=== PATIENT | male | born 1965 | race Caucasian/White ===

== ENCOUNTER → 2016-06-30 08:42 | Outpatient (CLI) | payer MEDICARE | END | disposition home or self-care (01) | LOC: D.RAD 06-23 13:00 | DX: M54.6 Pain in thoracic spine (principal) ==

== ENCOUNTER 2017-01-11 16:28 | Inpatient (IN) | payer MEDICARE ==
[~2017-01-11] VITALS: Ht 182.9 cm; Wt 152.7 kg
[2017-01-11 17:05] LABS: BASOPHILS 0.1 % (0-2); EOSINOPHILS 0 % (0-7); HEMATOCRIT 35.5 % (42.0-54.0); HEMOGLOBIN 11.1 g/dL (13.5-17.5); IMMATURE GRANULOCYTES 0.3 % (0-5); LYMPHOCYTES 11.5 % (15-50); MCH 24.6 pg (26.0-34.0); MCHC 31.3 g/dL (31.0-37.0); MCV 78.5 fL (80.0-100.0); MEAN PLATELET VOLUME 8.6 fL (7.4-10.4); MONOCYTES 15.8 % (2-11); NEUTROPHILS 72.3 % (40-80); PLATELET COUNT 304 10x3/uL (130-400); RBC 4.52 10x6/uL (4.20-6.10); RDW 14.4 % (11.5-14.5); WBC 13.7 10x3/uL (4.8-10.8)
[2017-01-11 17:18] LABS: ALBUMIN 2.7 g/dL (3.4-5.0); ALKALINE PHOSPHATASE 54 U/L (46-116); ALT (SGPT) 10 U/L (10-68); BILIRUBIN - TOTAL 0.45 mg/dL (0.2-1.3); CALC OSMOLALITY 268 mosm/kg (275-300); CALCIUM 8.7 mg/dL (8.5-10.1); CARBON DIOXIDE 23.5 mmol/L (21.0-32.0); CHLORIDE - SERUM 98 mmol/L (98-107); CREATININE - SERUM 0.8 mg/dL (0.6-1.3); POTASSIUM - SERUM 4.1 mmol/L (3.5-5.1); PROTEIN - SERUM 7.5 g/dL (6.4-8.2); SODIUM 134 mmol/L (136-145); UREA NITROGEN 9 mg/dL (7-18); eGFR NON AFRICAN AMERICAN > 90 mL/min (90-120)
[2017-01-11 17:20] LABS: GLUCOSE 129 mg/dL (74-106)
[2017-01-11 20:34] LABS: COLOR YELLOW (YELLOW)
[2017-01-11 20:35] LABS: APPEARANCE CLEAR (CLEAR); BILIRUBIN NEGATIVE (NEGATIVE); GLUCOSE 1000 mg/dL (NEGATIVE); KETONE MODERATE mg/dL (NEGATIVE); NITRITE NEGATIVE (NEGATIVE); PROTEIN NEGATIVE (NEGATIVE); SPECIFIC GRAVITY 1.015 (1.005-1.020); UROBILINOGEN NORMAL (NORMAL)
--- NOTE | 2017-01-11 21:30 | NUR ---
RECEIVED TO FLOOR FROM ER, ORIENTED TO ROOM, CALL LIGHT IN REACH, DENIES NEEDS, BED LOWEST POSITION, WILL CONTINUE TO MONITOR
[2017-01-11] MEDS ORDERED: FUROSEMIDE20 MG PO (21:36)
[2017-01-11] MEDS ORDERED: PRAVACHOL40 MG PO (21:36)
[2017-01-11] MEDS ORDERED: COREG25 MG PO (21:36)
[2017-01-11] MEDS ORDERED: PLAVIX75 MG PO (21:37)
[2017-01-11] MEDS ORDERED: KLOR-CON 1010 MEQ PO (21:37)
[2017-01-11] MEDS ORDERED: NOVOLOG MIX 70/10 ML SQ (21:38)
[2017-01-11] MEDS ORDERED: CELEXA40 MG PO (21:39)
[2017-01-11] MEDS ORDERED: METFORMIN HCL500 M1 PO (21:39)
[2017-01-11] MEDS ORDERED: LANTUS INSULIN10 ML SC (21:40)
[2017-01-11] MEDS ORDERED: FARXIGA10 MG PO (21:40)
[2017-01-11] MEDS ORDERED: HYDROCODONE-APA1 TAB PO (21:41)
[2017-01-11] MEDS ORDERED: NEURONTIN600 MG PO (21:41)
[2017-01-11] MEDS ORDERED: BAYER CHEWABLE81 MG PO (21:43)
[2017-01-11] MEDS ORDERED: NIASPAN1000 MG PO (21:44)
[2017-01-11] MEDS ORDERED: FLAXSEED OIL1000 MG PO (21:44)
[2017-01-12 00:27] VITALS: BP 129/51
[2017-01-12 04:59] VITALS: BP 132/74
[2017-01-12 06:19] VITALS: BMI 38.7
--- NOTE | 2017-01-12 06:34 | NUR ---
AWAKE ALERT REMAINS NPO ASSESSMENT PER ADMIT PACKET.
--- NOTE | 2017-01-12 07:33 | NUR ---
PT WAS RECEIVED THIS AM LYING IN BED. FAMILY AT BEDSIDE. PT HAS BEEN NPO WAITING ON SURGERY TO BE DONE TODAY BY DR JACOB. PT AND FAMILY WANTING TO KNOW TIME OF SURGERY. I CALLED SURGERY AND HE HAS NOT BEEN SCHEDULED YET. GEN- AWAKE AND ALERT. LUNGS- CLEAR. HEART- RRR. ABD- WITH TENDERNESS, BS+. EXT WITH NO EDEMA. BED IS LOW, SIDE RAILS UP X 2 AND CALL LIGHT IN REACH.
--- NOTE | 2017-01-12 07:36 | NUR ---
BS WAS 138. NO INSULIN GIVEN AT THIS TIME.
[2017-01-12 08:25] VITALS: BP 119/62
[2017-01-12 10:06] LABS: INR 1.21 (0.85-1.17); PROTIME 14.9 SECONDS (11.6-15.0)
--- NOTE | 2017-01-12 10:07 | NUR ---
Patient Name: MIGUEL ANGEL RODRIGUEZ Admission Status: ER Accout number: [id number] Admission Date: 01-11-2017 : 1965 Admission Diagnosis: Attending: REN JACOB Current LOS: 1 Anticipated DC Date: 01-18-2017 Planned Disposition: Home Primary Insurance: [employer] ADV Discharge Planning Comments: CM MET WITH PATIENT AND SISTER REGARDING D/C NEEDS AND PLANS. PATIENT STATED HE HAS A RAMP TO ENTER HOME AND NO STAIRS INSIDE. PATIENTS WILL DRIVE HIM HOME AT DISCHARGE. PATIENT STATED HE IS INDEPENDENT WITH HIS CARE AND HAS A WALKER, CANE, SHOWER CHAIR, AND GLUCOMETER AT HOME. PATIENTS PCP IS DR. REDDY AND PHARMACY IS [facility]. PATIENT STATED HE HAD HOME HEALTH FOR A WEEK AND WILL NOT HAVE IT AGAIN THAT THEY DID NOTHING FOR HIM. CM WILL CONTINUE TO FOLLOW PATIENT WITH D/C NEEDS AND PLANS. PCP DR. REDDY [facility] [phone] TAMARA () [phone] Studio Owner: Kenyatta Marvin Is the patient Alert and Oriented? Yes 0 * How many steps to enter\exit or inside your home? RAMP 0 * PCP DR. REDDY 0 * [facility] * Preadmission Environment Home with Family 0 * ADLs Independent 0 * Equipment Cane Glucometer Shower Chair Walker 0 * List name and contact numbers for known caregivers / representatives who currently or will assist patient after discharge: TAMARA () [phone] * Community resources currently utilized None 0 * Additional services required to return to the preadmission environment? Yes 0 * Can the patient safely return to the preadmission environment? Yes 0 * Has this patient been hospitalized within the prior 30 days at any hospital? Yes 0 Grand Total: 0
--- NOTE | 2017-01-12 11:17 | NUR ---
IR IS HERE TO GET PT TO HAVE CT GUIDED DRAINAGE DONE.
--- NOTE | 2017-01-12 12:33 | NUR ---
PT RETURNED FROM IR. TALKED TO MARSHA CASTILLO WITH IR AND HE STATES THERE WAS A LITTLE BLOOD DRAINED. STATES THAT IT IS A HEMATOMA. NO DRAIN OR FURTHER PROCEDURE BY IR. AWAIT DR JACOB TO SEE TO EVALUATE.
--- NOTE | 2017-01-12 13:59 | NUR ---
CALLED DR JACOB. HE OK'D PT HAVING AN ADA DIET. ORDERED PT SOME LUNCH.
[2017-01-12 16:00] VITALS: BP 135/70
--- NOTE | 2017-01-12 16:14 | NUR ---
BS WAS 275. GIVEN HUMULIN R 6 UNITS LEFT ARM. PT OFFERS NO COMPLAINTS. HE HAS BEEN RESTING IN BED.
--- NOTE | 2017-01-12 18:49 | NUR ---
PT FEELS LIKE HE IS RUNNING A FEVER. TEMP IS 102.3. CALLED DR RODNEY.
--- NOTE | 2017-01-12 19:15 | NUR ---
RECIEVED SHIFT REPORT. PT IS LYING IN BED. ALERT AND ORIENTED AND ABLE TO VERBALIZE NEEDS. IV IS PATENT AND FLUIDS ARE RUNNING PER ORDER. PT IS AMBULATORY BUT WAS INSTRUCTED TO CALL FOR ANY ASSISTANCE NEEDED. PT STATES PAIN IS 4/10. NO NEEDS ARE VERBALIZED AT THIS TIME. FAMILY AND VISITORS ARE AT THE BEDSIDE. WILL CONTINUE TO MONITOR. SIDE RAILS ARE UP X 2. BED IS IN LOWEST POSITION. CALL LIGHT IS WITHIN REACH.
--- NOTE | 2017-01-12 20:10 | NUR ---
CALL PLACED AND RETURNED BY DR RODNEY. LEGAL SPECIALIST DILAUDID WAS ORDERED FOR PT AND HE HAS AN ALLERGY TO MEDICATION. NEW ORDERS RECIEVED FOR MORPHINE LEGAL SPECIALIST WHICH IS WHAT PT HAS BEEN TAKING.
--- NOTE | 2017-01-12 20:34 | NUR ---
SHIFT ASSESSMENT COMPLETED. NIGHT MEDS HUNG AND GIVEN PER ORDER. PT RECIEVED 2 UNITS INSULIN PER SLIDING SCALE FOR [facility]=829. CHILD DEVELOPMENT DIRECTOR HOOKED UP PER ORDER AND INSTRUCTIONS ON USE PROVIDED. UNDERSTANDING VERBALIZED. NO NEEDS AT THIS TIME. WILL MONITOR. FAMILY AND VISITORS AT BEDSIDE. SIDE RAILS X 2. BED LOW. CALL LIGHT IN REACH.
[2017-01-12 20:55] VITALS: BP 141/70
[2017-01-12 23:46] VITALS: BP 121/60
[2017-01-13 04:00] VITALS: BP 133/69
--- NOTE | 2017-01-13 07:30 | NUR ---
MR RODRIGUEZ IS RECEIVED THIS AM LYING IN BED. HE IS AWAKE AND ALERT. HIS PAIN IS UNDER CONTROL AT THIS TIME UNTIL HE MOVES. HE HAS BEEN GETTING UP TO USE THE BATHROOM. HIS IS AT BEDSIDE. GEN- AWAKE AND ALERT. LUNGS- CLEAR. HEART- RRR. ABD- OBESE, SOFT, WITH TENDERNESS RLQ AND UPPER QUADRANT. BS+. EXT- NO EDEMA NOTED. . BED IS LOW, SIDE RAILS UP X 2 AND CALL LIGHT IN REACH.
[2017-01-13 08:00] VITALS: BP 131/69
--- NOTE | 2017-01-13 09:30 | NUR ---
AM MEDS GIVEN . PT HAS BEEN RESTING. HE OFFERS NO COMPLAINTS. AT BEDSIDE. BED IS LOW. SIDE RAILS UP X 2 AND CALL LIGHT IN REACH
--- NOTE | 2017-01-13 12:31 | NUR ---
PTS TEMP IS 101.1 TYLENOL 650 MG PO GIVEN.
[2017-01-13 12:45] VITALS: BP 148/79
--- NOTE | 2017-01-13 15:41 | NUR ---
PT GOT UP AND TOOK A SHOWER. HE TOLERATED WELL. HE IS BACK IN BED. IV INITAITED AGAIN. DRESSING RIGHT SIDE OF ABDOMEN CHANGED. A HEMATOMA WAS NOTED ON DRESSING AND PURULENT YELLOW GREEN DRAINAGE DRAINING FROM DRAIN HOLE. NEW DRESSING APPLIED. ANNA FROST RN WITH IR CONTACTED AND INFORMED. TOLD TO CALL DR JACOB. I CALLED DR JACOB AND TOLD HIM ABOUT BLOOD CULTURE BEING GRAM + COCCI AND DRAINAGE FROM WOUND. DR JACOB ORDERED VANCOMYCIN 1 GRAM AND ASKED THAT PHARMACY DOSE THE OTHER DOSES.
[2017-01-13 16:45] VITALS: BP 137/62
--- NOTE | 2017-01-13 18:32 | NUR ---
ABDOMINAL DRESSING CHANGED. DRAINAGE IS DRAINING FROM DRESSING. AREA CLEANED. 4X4'S ABD PAD APPLIED AND TAPED. GOWN AND BEDDING CHANGED. TEMP 100.5 TYLENOL 650 MG GIVEN.
[2017-01-13 20:16] VITALS: BP 134/72
[2017-01-13 23:39] VITALS: BP 126/57
--- NOTE | 2017-01-14 02:36 | NUR ---
ASSESSED AT THE BEGINNING OF THE SHIFT. PT IS ALERT AND ORIENTED, ABLE TO VERBALIZE NEEDS. THERE IS A DRESSING INTACT TO HIS RT LOWER ABD FROM A INCION SITE TO AN I AND D OF A ABCESS. HE STATES IT IS PAINFUL AND HAS A MORPHINE CROWN WHEEL ASSEMBLER TO CONTROL THE PAIN. HIS HAS REMAINED AT THE BEDSIDE ALL NIGHT. HE IS ABLE TO GET UP TO THE BATHROOM AD NANCY WITH FIFE ASSISTING HIM. HE HAS SCD'S BUT IS NOT WEARING THEM. THE BED IS LOW, RAILS UP X'S 2 WITH THE CALL LIGHT AT HAND.
--- NOTE | 2017-01-14 08:00 | NUR ---
PT ASSESSMENT COMPLETE AWAKE AND ALERT NO DISTRESN OTE D DRESSING INTACT TO RLQ ABDOMEN. NO SEEPING NOTED AT SIDE CALL LIGHT IN REACH CUSTOM CLOTHIER NOTED TO BE EFFECTIVE.
[2017-01-14 09:06] VITALS: BP 123/64
--- NOTE | 2017-01-14 12:00 | NUR ---
PT HAS AMBULATED ON UNIT SEVERAL TIMES TODAY APPITITE GOOD. FSBS PER ORDER AND TREATMENT WITH INSULIN PER ORDER
[2017-01-14 12:30] VITALS: BP 126/70
--- NOTE | 2017-01-14 13:00 | NUR ---
PT HERE FOR ABCESS FOR THIS VISIT PT AOX4 RESP EVEN AND NONLABORED IV TO LEFT HAND PATENT AND INTACT AT THIS TIME SRX2 BED AT LOWEST SETTING CALL LIGHT WITHIN REACH WILL CONTINUE TO MONITOR
--- NOTE | 2017-01-14 16:30 | NUR ---
PT WITH NO DISTRESS NOTED AT THIS TIME DRESSING CHANGED X 2 THIS SHIFT
[2017-01-14 16:45] VITALS: BP 116/59
--- NOTE | 2017-01-14 19:15 | NUR ---
REPORT RECEIVED AND CARE OF PT ASSUMED. PT AMBULATING IN ROOM. IV IN LEFT HAND PATENT WITH NS INFUSING AT 100 ML / HR. MORPHINE STICKER OPERATOR IN USE FOR PAIN CONTROL. WILL MONITOR CLOSELY FOR NEEDS.
--- NOTE | 2017-01-14 20:36 | NUR ---
TEACHING DONE ON DEEP BREATHING AND COUGHING. INSTRUCTED ON USE OF INCENTIVE INSPIROMETER AND PLACED AT BEDSIDE.
--- NOTE | 2017-01-14 20:42 | NUR ---
HS MEDICATIONS GIVEN. SCD'S RE-PLACED. WILL CONTINUE TO MONITOR FOR NEEDS.
[2017-01-14 21:28] VITALS: BP 136/69
[2017-01-15 01:06] VITALS: BP 129/74
[2017-01-15 05:49] VITALS: BP 142/75
--- NOTE | 2017-01-15 07:40 | NUR ---
RECEIVED REPORT, WILL ASSUME CARE OF PT, IV-L.HAND NS- GREEN MARKETING ANALYST 1MG,Q10 LOCKOUT 10MG, PT ASKING FOR CELL PHONE GIRLS SWIMMING COACH, DENIES ANY OTHER NEEDS, BED IS LOW, SRX2, CALL LIGHT IN REACH, WILL CONTINUE PLAN OF CARE
[2017-01-15 09:39] VITALS: BP 125/66
--- NOTE | 2017-01-15 10:49 | NUR ---
RESTING QUIETLY IN BED. DENIES NEEDS. REPORTS GOOD PAIN MANAGEMENT WITH USE OF SHEARER OPERATOR.
--- NOTE | 2017-01-15 11:52 | NUR ---
[id number] 6 UNITS OF HUMLIN
[2017-01-15 13:00] VITALS: BP 123/69
--- NOTE | 2017-01-15 13:12 | NUR ---
ASSESSOR ASSITING PT WITH SHOWER/LINNEN CHANGE
--- NOTE | 2017-01-15 13:50 | NUR ---
PT MADE 3 LAP AROUND FLOOR, REDRESSED ABDOMEN WOUND
[2017-01-15 16:07] VITALS: BP 126/70
--- NOTE | 2017-01-15 17:00 | NUR ---
SPOKE WITH DR. JACOB, WAS TOLD TO RENEW TRANSPORTATION BROKER PUMP, ALSO RE DRESSED ABDOMEN DRESSING
--- NOTE | 2017-01-15 19:27 | NUR ---
PATIENT RESTING IN BED WITH GUESTS AT BEDSIDE. PATIENT DENIES NEEDS AT THIS TIME. BED IN LOWEST POSITION AND CALL LIGHT WITHIN REACH. ENCOURAGED THE PATIENT TO CALL IF HE HAS NEEDS.
[2017-01-15 20:00] VITALS: BP 104/50
[2017-01-16 04:00] VITALS: BP 148/82
[2017-01-16 08:30] VITALS: BP 151/77
[2017-01-16 08:34] LABS: BASOPHILS 0.1 % (0-2); EOSINOPHILS 6.3 % (0-7); HEMATOCRIT 32.1 % (42.0-54.0); HEMOGLOBIN 9.9 g/dL (13.5-17.5); IMMATURE GRANULOCYTES 1.3 % (0-5); MCH 24.2 pg (26.0-34.0); MCHC 30.8 g/dL (31.0-37.0); MCV 78.5 fL (80.0-100.0); MEAN PLATELET VOLUME 8.3 fL (7.4-10.4); MONOCYTES 10.3 % (2-11); PLATELET COUNT 315 10x3/uL (130-400); RBC 4.09 10x6/uL (4.20-6.10); RDW 14.8 % (11.5-14.5); WBC 9.5 10x3/uL (4.8-10.8)
[2017-01-16 08:47] LABS: ALBUMIN 1.8 g/dL (3.4-5.0); ALKALINE PHOSPHATASE 57 U/L (46-116); ALT (SGPT) 11 U/L (10-68); BILIRUBIN - TOTAL 0.19 mg/dL (0.2-1.3); CALC OSMOLALITY 281 mosm/kg (275-300); CALCIUM 7.7 mg/dL (8.5-10.1); CARBON DIOXIDE 29.2 mmol/L (21.0-32.0); CHLORIDE - SERUM 103 mmol/L (98-107); CREATININE - SERUM 0.5 mg/dL (0.6-1.3); GLUCOSE 249 mg/dL (74-106); POTASSIUM - SERUM 3.9 mmol/L (3.5-5.1); PROTEIN - SERUM 5.9 g/dL (6.4-8.2); SODIUM 138 mmol/L (136-145); UREA NITROGEN 6 mg/dL (7-18); eGFR NON AFRICAN AMERICAN > 90 mL/min (90-120)
[2017-01-16 12:31] VITALS: BP 145/62
--- NOTE | 2017-01-16 13:30 | NUR ---
RESTING QUIETLY IN BED. VISITORS IN ROOM. DENIES NEEDS.
--- NOTE | 2017-01-16 14:30 | NUR ---
PIV TO L WRIST RED, SWOLLEN, AND PAINFUL PER PT. DC'D WITH CATHETER INTACT. PRESSURE AND DRESSING APPLIED. PIV RESITED TO L UPPER ARM WITH 20 GUAGE IV. X1 ATTEMPT. RECONNECTED TO IVF. BED LOW, CALL LIGHT IN REACH, DENIES NEEDS. CPOC.
[2017-01-16 16:11] VITALS: BP 139/83
--- NOTE | 2017-01-16 19:44 | NUR ---
PATIENT RESTING IN BED AND DENIES NEEDS AT THIS TIME. PATIENT FINISHED HIS MAG CITRATE. BED IN LOWEST POSITION AND CALL LIGHT WITHIN REACH. ENCOURAGED THE PATIENT TO CALL IF HE HAS NEEDS.
[2017-01-16 20:00] VITALS: BP 145/79
[2017-01-17 04:00] VITALS: BP 141/69
--- NOTE | 2017-01-17 07:42 | NUR ---
TROUGH TODAY WAS LOW. INCREASED DOSE TO 1.5 GRAM Q8H AND ORDERED A TROUGH FOR TOMORROW.
--- NOTE | 2017-01-17 07:48 | NUR ---
PT RESTING IN BED. PT HAS BEEN NPO SINCE MIDNIGHT. PT DENIES NEEDS AT THIS TIME. WCTM.
[2017-01-17 08:45] VITALS: BP 132/78
--- NOTE | 2017-01-17 09:41 | NUR ---
PT UP TO SHOWER. SPOUSE ASSISTING.
[2017-01-17 12:49] VITALS: BP 55/76
--- NOTE | 2017-01-17 12:50 | NUR ---
PT PRE-OP MEDS ADMINISTERED. PT RESTING IN BED. WCTM.
--- NOTE | 2017-01-17 15:22 | NUR ---
PT RESTING IN BED, DENIES NEEDS. WCTM.
[2017-01-17 16:45] VITALS: BP 108/52; BP 147/73
--- NOTE | 2017-01-17 17:21 | NUR ---
TO SURG PER BED
--- NOTE | 2017-01-17 21:08 | NUR ---
IVP X-RAY DONE AT END OF CASE,
--- NOTE | 2017-01-17 22:06 | NUR ---
PT VOICES PAIN "10/10" NUMERIC SCALE. IN "[facility]"
--- NOTE | 2017-01-17 22:13 | NUR ---
PT VOICES PAIN '10/10" NUMERIC SCALE IN "[facility]"
--- NOTE | 2017-01-17 22:18 | NUR ---
TRIED CALLING PHARMACY, DUE TO PATIENTS PAIN MEDICINE TIMING OUT ON THE APR DUE TO THE SURGERY CASE TAKING LONGER THAN EXSPECTED. MORPHINE 2MG Q3M UP TO 20MG WAS ORDERED PER ANESTHESIA. I HAVE TRIED TWICE NOT TO CALL PHARMACY TO RE-AUTHORIZE THE ORDERS SO I COULD SCAN THEM. WILL DOCUMENT ON PACU MEDICINE PAGE.
--- NOTE | 2017-01-17 22:20 | NUR ---
PT VOICES PAIN "8" NUMEREIC SCALE
--- NOTE | 2017-01-17 22:26 | NUR ---
PT VOICES PAIN "8/10" NUMERIC SCALE.
--- NOTE | 2017-01-17 22:27 | NUR ---
TRIED CALLING PHARMACY PAUL, NO ANSWER
--- NOTE | 2017-01-17 22:29 | NUR ---
PT VOICES PAIN "6/10" NUMERIC SCALE IN "[facility]"
--- NOTE | 2017-01-17 22:37 | NUR ---
TRIED CALLING PHARMACY AGAIN, NO ANSWER. HAVE DOCUMENTED PAIN MEDICINE ADMINISTRATION ON MEDS PACU PAGE.
--- NOTE | 2017-01-17 22:40 | NUR ---
HAVE EMPTIED 200 OF BRIGHT RED BLOOD FROM ANIKA DRAIN IN LLQ
[2017-01-17 23:20] VITALS: BP 140/75
--- NOTE | 2017-01-17 23:20 | NUR ---
REC'D PATIENT FROM RECOVERY. PATIENT IS ALERT AND ORIENTED AND HAS NO VISIBLE SIGNS OF DISTRESS. BED IN LOWEST POSITION AND CALL LIGHT ON. ENCOURAGED THE PATIENT TO CALL IF HE HAS NEEDS.
[2017-01-18 04:00] VITALS: BP 124/75
[2017-01-18 05:31] LABS: BASOPHILS 0.1 % (0-2); EOSINOPHILS 0 % (0-7); HEMOGLOBIN 9.7 g/dL (13.5-17.5); IMMATURE GRANULOCYTES 1.1 % (0-5); LYMPHOCYTES 5.9 % (15-50); MCH 24.1 pg (26.0-34.0); MCHC 30.3 g/dL (31.0-37.0); MCV 79.6 fL (80.0-100.0); MEAN PLATELET VOLUME 8.4 fL (7.4-10.4); MONOCYTES 6.4 % (2-11); NEUTROPHILS 86.5 % (40-80); RBC 4.02 10x6/uL (4.20-6.10); RDW 15.2 % (11.5-14.5)
[2017-01-18 05:56] LABS: PLATELET COUNT 430 10x3/uL (130-400); WBC 17.9 10x3/uL (4.8-10.8)
[2017-01-18 06:04] LABS: ALBUMIN 1.9 g/dL (3.4-5.0); ALKALINE PHOSPHATASE 55 U/L (46-116); BILIRUBIN - TOTAL 0.21 mg/dL (0.2-1.3); CALCIUM 7.1 mg/dL (8.5-10.1); CARBON DIOXIDE 22.8 mmol/L (21.0-32.0); CHLORIDE - SERUM 105 mmol/L (98-107); CREATININE - SERUM 0.6 mg/dL (0.6-1.3); GLUCOSE 279 mg/dL (74-106); MAGNESIUM - SERUM 1.7 mg/dL (1.8-2.4); PHOSPHOROUS 3.8 mg/dL (2.5-4.9); PROTEIN - SERUM 5.4 g/dL (6.4-8.2); SODIUM 139 mmol/L (136-145); eGFR NON AFRICAN AMERICAN > 90 mL/min (90-120)
[2017-01-18 06:05] LABS: ALT (SGPT) 18 U/L (10-68); CALC OSMOLALITY 285 mosm/kg (275-300); POTASSIUM - SERUM 4.7 mmol/L (3.5-5.1); UREA NITROGEN 8 mg/dL (7-18)
--- NOTE | 2017-01-18 07:07 | NUR ---
REPORT RECEIVED, ASSUMED CARE OF PT. RESTING WITH EYES SHUT, EASILY AROUSED. FAMILY AT BEDSIDE. NOGUEIRA CATHETER IN PLACE, SECURED TO LEG WITH STAT-LOCK, PATENT, DRAINING. O2 VIA NASAL CANNULA AT 2L. L UPPER ARM IV INFUSING ORDERED, DRSG C/D/I. DRSG TO ABD C/D/I. SCD'S IN PLACE BILATERALLY. BED IN LOWEST POSITION, SIDE RAILS UP X 2, CALL LIGHT WITHIN REACH.
[2017-01-18 08:47] VITALS: BP 126/86
[2017-01-18 12:48] VITALS: BP 129/81
[2017-01-18 13:13] VITALS: BMI 38.6
--- NOTE | 2017-01-18 14:46 | NUR ---
TROUGH = 16.5. CONTINUE CURRENT DOSING
[2017-01-18 17:02] VITALS: Ht 182.9 cm; Wt 152.7 kg
[2017-01-18 19:43] LABS: INR 1.23 (0.85-1.17); PROTIME 15.1 SECONDS (11.6-15.0)
[2017-01-18 20:07] LABS: ALBUMIN 2.1 g/dL (3.4-5.0); ALKALINE PHOSPHATASE 62 U/L (46-116); ALT (SGPT) 15 U/L (10-68); AMYLASE - SERUM 23 U/L (25-115); BILIRUBIN - TOTAL 0.21 mg/dL (0.2-1.3); CALC OSMOLALITY 286 mosm/kg (275-300); CALCIUM 7.3 mg/dL (8.5-10.1); CARBON DIOXIDE 24.3 mmol/L (21.0-32.0); CHLORIDE - SERUM 107 mmol/L (98-107); CREATINE KINASE 277 UL (21-232); CREATININE - SERUM 0.6 mg/dL (0.6-1.3); GLUCOSE 255 mg/dL (74-106); LIPASE 76 U/L (73-393); POTASSIUM - SERUM 4.6 mmol/L (3.5-5.1); PROTEIN - SERUM 5.9 g/dL (6.4-8.2); SODIUM 140 mmol/L (136-145); UREA NITROGEN 10 mg/dL (7-18); URIC ACID 4.7 mg/dL (2.6-7.2); VANCOMYCIN - RANDOM 16.9 ug/mL (10.0-20.0); eGFR NON AFRICAN AMERICAN > 90 mL/min (90-120)
[2017-01-18 20:10] LABS: CKMB 2.4 U/L (0.0-3.6)
[2017-01-18 21:00] VITALS: BP 138/90
--- NOTE | 2017-01-18 21:36 | NUR ---
REPORT AND PT RECIEVED. FAMILY UPDATE. NO NEW CHANGS. VSS. WILL CONTINUE TO MONITOR
[2017-01-18 22:00] VITALS: BP 155/91
[2017-01-18 23:00] VITALS: BP 151/87
--- NOTE | 2017-01-18 23:35 | NUR ---
REASSESSMENT COMPLETE PER FLOW SHEET. VSS NO NEW CHANGES. CVP 12. WILL CONTINUE TO MONITOR
[2017-01-19] VITALS (12 sets, daily range): BP systolic 136–162; BP diastolic 66–97
--- NOTE | 2017-01-19 01:10 | NUR ---
PT SLEEPING COMFORTABLY. VSS WILL CONTINUE TO MONITOR
--- NOTE | 2017-01-19 03:23 | NUR ---
REASSESSMENT COMPLETE PER FLOW SHEET. VSS. NONEW CHANGES WILL CONTINUE TO MONITOR
[2017-01-19 04:17] LABS: HEMATOCRIT 30.2 % (42.0-54.0); MCH 23.9 pg (26.0-34.0); MCHC 29.8 g/dL (31.0-37.0); MCV 80.3 fL (80.0-100.0); MEAN PLATELET VOLUME 8.2 fL (7.4-10.4); PLATELET COUNT 456 10x3/uL (130-400); RBC 3.76 10x6/uL (4.20-6.10); RDW 15.5 % (11.5-14.5); WBC 21.1 10x3/uL (4.8-10.8)
[2017-01-19 04:45] LABS: ALBUMIN 1.9 g/dL (3.4-5.0); ALKALINE PHOSPHATASE 63 U/L (46-116); BILIRUBIN - TOTAL 0.19 mg/dL (0.2-1.3); CALC OSMOLALITY 286 mosm/kg (275-300); CALCIUM 7.3 mg/dL (8.5-10.1); CARBON DIOXIDE 24.2 mmol/L (21.0-32.0); CHLORIDE - SERUM 107 mmol/L (98-107); CREATININE - SERUM 0.6 mg/dL (0.6-1.3); GLUCOSE 274 mg/dL (74-106); POTASSIUM - SERUM 4.2 mmol/L (3.5-5.1); SODIUM 139 mmol/L (136-145); UREA NITROGEN 11 mg/dL (7-18); eGFR NON AFRICAN AMERICAN > 90 mL/min (90-120)
[2017-01-19 04:47] LABS: LYMPHOCYTES 7 % (15-50); MONOCYTES 3 % (2-11); NEUTROPHILS 87 % (40-80); PLATELET ESTIMATE INCREASED
[2017-01-19 04:54] LABS: ALT (SGPT) 11 U/L (10-68)
--- NOTE | 2017-01-19 07:56 | NUR ---
DR JACOB BY TO SEE PATIENT. UPDATE PROVIDED TO HIM. DR JACOB THEN WENT OUT TO SPEAK TO FAMILY.
--- NOTE | 2017-01-19 09:21 | NUR ---
FAMILY AT BEDSIDE. ASKING ABOUT WOUND VAC. EXPLAINED VAC SYSTEM AND UPDATED ABOUT CONSULT FOR ARI
--- NOTE | 2017-01-19 09:45 | OP ---
PATIENT NAME: MIGUEL ANGEL RODRIGUEZ MEDICAL RECORD: [id number] :69 LOCATION:[facility] D.[id number] ADMISSION DATE:01/11/17 SURGEON: MOISES PRINGLE MD DATE OF OPERATION: 01/18/2017 SURGEON: Moises Pringle MD ANESTHESIA: MAC by Daniel Cao CRNA. PREOPERATIVE DIAGNOSES: Sepsis, acute renal failure, question of right ureteral injury. PROCEDURES: Cystoscopy, right retrograde pyelogram, right ureteral stent insertion 6-Angolan x 26 cm without string attached. FINDINGS: Obstructive prostate, trabeculated bladder without tumors. Single ureteral orifices bilaterally. No disruption of the right ureter, no hydronephrosis. ESTIMATED BLOOD LOSS: None. CLINICAL HISTORY: This is a 51-year-old male with a longstanding history of diabetes mellitus type 2, hypertension, hypercholesterolemia, coronary artery disease and history of congestive heart failure. He had an acute appendicitis. He went to [facility]. They found that the appendix had ruptured and he had a pelvic abscess. A drain was placed in the pelvic abscess. Yesterday, Dr. Vogt addressed the appendicitis and the patient underwent a right hemicolectomy. There was a tremendous amount of inflammation in the right pelvis from the chronic appendicitis with abscess. Dr. Vogt was very concerned about the status of the right ureter. He did an on-table IVP and the left side showed contrast going all the way down to the bladder with no evidence of hydronephrosis or obstruction. On the right side, the contrast column went down to the mid sacral level and then could not be seen any further distally. I saw the patient today. I asked for a Lasix renal scan. This showed equal perfusion of both kidneys. However, there was no response to Lasix on either side suggestive of acute tubular necrosis. The patient may also have been having prerenal azotemia. I did give him a bolus of 1 liter of normal saline on the floor. However, given his previous history of congestive heart failure, he will need a central venous line monitoring of CVP in order to adjust his fluid status levels. His creatinine was 0.6 yesterday, but if he has acute renal failure today, it will take several days for the creatinine to elevate. Because of the question of possible injury to the right ureter, we brought him to the OR today to perform bilateral retrograde pyelograms and hopefully insertion of bilateral ureteral stents to make sure that there was no obstruction causing his renal failure. HE IS ALLERGIC TO DILAUDID, CORTICOSTEROIDS, PENICILLINS, AND SULFA. He is already on IV antibiotics on the floor and I did not give him any further antibiotics. DESCRIPTION OF PROCEDURE: The patient was given IV sedation. He was then placed in the dorsal lithotomy position, prepped and draped. While I was doing my procedure, Daniel Cao CRNA, was also inserting a central line for measurement of central venous pressure. We gave lidocaine jelly into the urethra. A 20-Angolan cystoscope with 30-degree lens was used for visualization. Penile urethra is normal with no strictures or tumors. Prostatic urethra shows no obstruction of the lateral lobes. However, the bladder neck was somewhat OPERATIVE REPORT [id number] MIGUEL ANGEL RODRIGUEZ, so he has some median lobe elevation and bladder neck contracture. The bladder is trabeculated, confirming bladder outlet obstruction. The bladder was inflamed from the presence of his indwelling Trujillo catheter. We had removed his Trujillo catheter prior to prepping him. With difficulty, we found the right ureteral orifice. An open-ended ureteral catheter was placed into the orifice and a retrograde pyelogram was performed using diluted contrast. This went up to the kidney. There was no evidence of hydronephrosis and there was no evidence of a stricture or deviation of the ureter in any way. A guidewire was placed up into the renal pelvis and over the guidewire, a 6-Angolan x 26 cm ureteral stent was inserted. Once the stent was in correct position, the wire was completely withdrawn. The distal end of the stent was pushed into the bladder using a pusher. The string on the distal end of stent was removed. We had great difficulty finding in the left ureteral orifice. In fact, I could not clearly identify it at all. We did have anesthesia give him an injection of 3 mL of IV methylene blue. In spite of this, after waiting for 10 minutes, there was no evidence of blue coming down either ureteral orifice. This is probably reflection of his ATN. At this point, the patient was getting restless and we decided to abandon further attempts to find the left ureteral orifice. This is in light of the fact that Dr. Vogt's IVP had shown the left side to be intact and Dr. Vogt himself stated that he had not worked on the left side. The patient will be going to the intensive care unit for fluid monitoring. TRANSINT:[id number] Voice Confirmation ID: [id number] DOCUMENT ID: [id number] MOISES PRINGLE MD at 0945 CC: [id number] DICTATION DATE: 01/18/172105 PROSPECTING DRILLER: 01/19/17 0415 ADM IN [place] [id number] [place] [address]
--- NOTE | 2017-01-19 09:46 | NUR ---
CALLED DR PRINGLE TO UPDATE ON PATIENT URINE OUTPUT AND ASK ABOUT GOING TO FLOOR. HAD BREVING STANDING NEXT TO HIM AT THAT TIME. BOTH OK WITH GOING TO FLOOR
--- NOTE | 2017-01-19 14:06 | NUR ---
WOUND NURSE BY. HAS REMOVED PACKING FROM WOUND AND REPLACED WITH WOUND VAC. URINE SAMPLE OBTAINED WELL.
--- NOTE | 2017-01-19 14:32 | NUR ---
CENTRAL LINE DRESSING CHANGED PER PROTOCOL.
--- NOTE | 2017-01-19 14:45 | NUR ---
REPORT CALLED TO BENJAMIN LARSON FOR ROOM 2113.
[2017-01-19 14:50] LABS: APPEARANCE CLOUDY (CLEAR); BACTERIA FEW /hpf (NONE SEEN); BILIRUBIN NEGATIVE (NEGATIVE); COLOR YELLOW (YELLOW); EPITHELIAL CELLS RARE /hpf (0-5); GLUCOSE 250 mg/dL (NEGATIVE); KETONE SMALL mg/dL (NEGATIVE); NITRITE NEGATIVE (NEGATIVE); PROTEIN 1+ mg/dL (NEGATIVE); RED CELLS - URINE 25-50 /hpf (0-5); UROBILINOGEN NORMAL (NORMAL)
--- NOTE | 2017-01-19 15:45 | NUR ---
PT ARRIVED FROM ICU. VSS. PT HAS A R.IJ CVL WITH VANC INFUSING TO ONE LUMEN AND EMERGENCY DEPARTMENT CLINICIAN MORPHINE @2MG Q10MIN VIA OTHER LUMEN. PT HAS A WOUND VAC TO ABDOMEN AND A ANIKA DRAIN TO LOWER ABDOMEN WITH VERY SCANT SEROSANG DRAINAGE. PT ALSO HAS NOGUEIRA IN PLACE DRAINING YELLOW CLEAR URINE, PT WANTS IT OUT AND HAS HAD A STENT PLACED RECENTLY, WILL CHECK WITH ABOUT REMOVAL. PTS BILAT LE VERY SWOLLEN +3 PITTING EDEMA, ELEVATED BILAT FEET ON PILLOW TO HELP REDUCE SWELLING. PT DENIES ANY CURRENT PAIN OR NEEDS. CL IN REACH, FAMILY AT BEDSIDE. WILL CPOC.
--- NOTE | 2017-01-19 16:25 | NUR ---
Wound vac applied to open wound on left lower abdomen. Surgical incision measures 4cm x 18cm x 6cm x 7cm from 9-3 oclock. The wound bed is red. There is no odor. Drainage appears sanguinous and moderate. No muscle/tendon/bone exposed. 2 pieces of black foam used for dressing. Pt tolerated well. Settings: -125mmhg low continuous.
--- NOTE | 2017-01-19 16:57 | NUR ---
FSBS 234 PROVIDED PT WITH 8 UNITS OF SS INSULIN. BRICK POINTER SYRINGE CHANGED OUT IT WAS EMPTY. PT SITTING UP IN BED WITH FAMILY AT BEDSIDE. NO FURTHER NEEDS AT THIS TIME. CL IN REACH. WILL CPOC.
--- NOTE | 2017-01-19 19:13 | NUR ---
DISCUSSED WITH ABOUT NOGUEIRA REMOVAL AND IT CAN BE REMOVED, PASSED ON TO NIGHTSHIFT AND WILL MONITER FOR ANY RENTENTION. PT VERBALIZED UNDERSTANDING AND IS THANKFUL TO GET IT OUT AND TRY TO VOID ON HIS OWN.
--- NOTE | 2017-01-19 19:33 | NUR ---
PT IN BED RESTING QUIETLY. FAMILY PRESENT AT BEDSIDE X3. DENIES ANY PAIN OR NEEDS AT THIS TIME. BREATHING EVEN AND UNLABORED. BED IN LOW POSITION, CALL LIGHT WITHIN REACH. WILL CTM.
[2017-01-20 00:21] VITALS: BP 150/80
--- NOTE | 2017-01-20 03:29 | NUR ---
SYRINGE IN IMMIGRATION GUARD PUMP CHANGED DUE TO IT BEING EMPTY. PT C/O NAUSEA. PRN ZOFRAN GIVEN. DENIES ANY OTHER NEEDS AT THIS TIME. BREATHING EVEN AND UNLABORED. BED IN LOW POSITION, CALL LIGHT WITHIN REACH. WILL CTM.
--- NOTE | 2017-01-20 04:02 | NUR ---
JERO DC/D PER ORDER. WILL MONITOR OUTPUT. PT STATES HE UNDERSTANDS TO LET ME KNOW IF HE GOES. INSTRUCTED ON CLEAN CATCH TO GET URINE SAMPLE. WILL CTM.
[2017-01-20 04:58] VITALS: BP 161/79
--- NOTE | 2017-01-20 04:58 | NUR ---
REQUESTED TIME CHANGE FOR FLAGYL IN INTERFERES WITH OTHER IV ABX. AWAITING PHARMACY TO COME IN AND CHANGE IT. WILL PASS ON IN REPORT.
[2017-01-20 06:09] LABS: BASOPHILS 0 % (0-2); EOSINOPHILS 0 % (0-7); HEMATOCRIT 26.9 % (42.0-54.0); HEMOGLOBIN 8.2 g/dL (13.5-17.5); IMMATURE GRANULOCYTES 0.6 % (0-5); LYMPHOCYTES 7.1 % (15-50); MCH 24.3 pg (26.0-34.0); MCHC 30.5 g/dL (31.0-37.0); MCV 79.8 fL (80.0-100.0); MEAN PLATELET VOLUME 8.2 fL (7.4-10.4); MONOCYTES 7.5 % (2-11); NEUTROPHILS 84.8 % (40-80); PLATELET COUNT 390 10x3/uL (130-400); RBC 3.37 10x6/uL (4.20-6.10); WBC 17.4 10x3/uL (4.8-10.8)
[2017-01-20 07:04] LABS: ALBUMIN 1.6 g/dL (3.4-5.0); ALKALINE PHOSPHATASE 61 U/L (46-116); ALT (SGPT) 9 U/L (10-68); BILIRUBIN - TOTAL 0.22 mg/dL (0.2-1.3); CALCIUM 7.1 mg/dL (8.5-10.1); CARBON DIOXIDE 25.9 mmol/L (21.0-32.0); CHLORIDE - SERUM 103 mmol/L (98-107); CREATININE - SERUM 0.5 mg/dL (0.6-1.3); POTASSIUM - SERUM 3.8 mmol/L (3.5-5.1); PROTEIN - SERUM 5.6 g/dL (6.4-8.2); SODIUM 137 mmol/L (136-145); VANCOMYCIN - TROUGH 16.4 ug/mL (10.0-20.0); eGFR NON AFRICAN AMERICAN > 90 mL/min (90-120)
[2017-01-20 07:08] LABS: CALC OSMOLALITY 277 mosm/kg (275-300); GLUCOSE 214 mg/dL (74-106); UREA NITROGEN 8 mg/dL (7-18)
[2017-01-20 08:40] VITALS: BP 140/81
--- NOTE | 2017-01-20 09:29 | NUR ---
MORNING MEDICATIONS GIVEN AND SHIFT ASSESSMENT COMPLETED. PTS BILAT LE STILL VERY SWOLLEN AND HE IS CONCERNED AND REQUESTING HIS HOME DOSE OF LASIX 20MG. PAGED PRIMARY TO INQUIRE ABOUT ALL HOME MEDS BEING RESTARTED. PTS NOGUEIRA WAS REMOVED OVERNIGHT AND HE HAS VOIDED 175ML SINCE BUT IT WAS DISCARDED R/T NOT A CC WILL COLLECT SPECIMEN ON NEXT VOID. PT C/O HIS ABDOMEN FEELING FULL AND HIM NOT WANTING TO EAT R/T IT. ABDOMEN IS DISTENDED AND PT STATES HE HASNT HAD A BM IN 4 DAYS AND HE NORMALLY HAS ONE DAILY. WILL DISCUSS THIS WITH PRIMARY AND CPOC.
--- NOTE | 2017-01-20 11:52 | NUR ---
FSBS 215. PROVIDED PT WITH 8 UNITS OF SS INSULIN. PT IN SEVERE PAIN FROM GETTING OOB TO URINATE AND REQUESTING BREAK-THROUGH PAIN MEDICATION AND WAS PROVIDED WITH IT. URINE SPECIMEN COLLECTED USING CLEAN CATCH AND WILL BE SENT TO LAB. NO FURTHER NEEDS AT THIS TIME. CL IN REACH, WILL CPOC.
--- NOTE | 2017-01-20 12:42 | NUR ---
Nutrition follow-up: Pt remains on clear liquid diet Wt: 345# Pt continues to have N/V and distended abdomen Labs reviewed 4 days since last BM per pt Will need to begin nutrition support within 24 hours if pts diet unable to advance past clears. RDN following.
[2017-01-20 12:58] VITALS: BP 146/78
--- NOTE | 2017-01-20 14:12 | NUR ---
DISCUSSED WITH WHO WAS ROUNDING FOR TODAY ABOUT ALL OF PTS HOME MEDICATIONS NEVER BEING STARTED ABOUT CONCERNS ABOUT ASA AND PLAVIX. VERBAL ORDER GIVEN TO RESTART HOME MEDS. PT VOICED THANKS AND DENIES ANY CURRENT NEEDS AT THIS TIME. WILL CPOC.
--- NOTE | 2017-01-20 16:00 | NUR ---
AT BEDSIDE AND DISCUSSING INFECTION RISK FACTORS, WANTING TO SEE ABOUT GETTING R.IJ REMOVED AND IF WE CAN HAVE A LESS INVASIVE ACCESS. WILL TRY TO GET A PIV FOR THE ANBX AND IF NOT ABLE THEN WILL CONSULT VASCULAR NURSE TOMORROW FOR POSSIBLE MIDLINE.
[2017-01-20 16:30] VITALS: BP 140/71
--- NOTE | 2017-01-20 16:40 | NUR ---
PAGED MOLASSES PREPARER FOR TO INQUIRE ABOUT ADVANCING DIET FROM CLEAR LIQUID.
--- NOTE | 2017-01-20 17:25 | NUR ---
CALLED BACK AND DENIED ADVANCING THE DIET.
[2017-01-20 19:11] LABS: AEROBE ID Final report (())
[2017-01-20 19:11] LABS: AEROBE ID Final report (())
--- NOTE | 2017-01-20 19:34 | NUR ---
PT IN BED RESTING QUIETLY. FAMILY PRESENT AT BEDSIDE. BED IN LOW POSITION, CALL LIGHT WITHIN REACH. WILL CTM .
[2017-01-20 22:08] VITALS: BP 116/64
--- NOTE | 2017-01-21 01:20 | NUR ---
PT RECEIVED BED BATH AND FULL LINEN CHANGE. DENIES ANY OTHER NEEDS AT THIS TIME. BREATHING EVEN AND UNLABORED. BED IN LOW POSITION, CALL LIGHT WITHIN REACH. WILL CTM.
[2017-01-21 05:06] VITALS: BP 118/66
[2017-01-21 06:36] LABS: BASOPHILS 0 % (0-2); EOSINOPHILS 0 % (0-7); IMMATURE GRANULOCYTES 0.5 % (0-5); LYMPHOCYTES 11.8 % (15-50); MCH 24.2 pg (26.0-34.0); MCHC 30.8 g/dL (31.0-37.0); MCV 78.5 fL (80.0-100.0); MEAN PLATELET VOLUME 8.3 fL (7.4-10.4); MONOCYTES 10.4 % (2-11); NEUTROPHILS 77.3 % (40-80); PLATELET COUNT 420 10x3/uL (130-400); RBC 3.31 10x6/uL (4.20-6.10); RDW 15.6 % (11.5-14.5)
[2017-01-21 06:52] LABS: ALBUMIN 1.5 g/dL (3.4-5.0); ALKALINE PHOSPHATASE 59 U/L (46-116); ALT (SGPT) 9 U/L (10-68); BILIRUBIN - TOTAL 0.14 mg/dL (0.2-1.3); CALC OSMOLALITY 277 mosm/kg (275-300); CALCIUM 7.3 mg/dL (8.5-10.1); CARBON DIOXIDE 27.6 mmol/L (21.0-32.0); CHLORIDE - SERUM 103 mmol/L (98-107); CREATININE - SERUM 0.5 mg/dL (0.6-1.3); POTASSIUM - SERUM 3.5 mmol/L (3.5-5.1); PROTEIN - SERUM 5.4 g/dL (6.4-8.2); SODIUM 138 mmol/L (136-145); UREA NITROGEN 7 mg/dL (7-18); eGFR NON AFRICAN AMERICAN > 90 mL/min (90-120)
[2017-01-21 06:53] LABS: GLUCOSE 166 mg/dL (74-106)
--- NOTE | 2017-01-21 07:28 | NUR ---
T RESTING IN BED WITH EYES CLOSED. BILATERAL RISE AND FALL OF CHEST NOTED. AT BEDSIDE. NAD NOTED. WILL CONTINUE WITH PLAN OF CARE.
--- NOTE | 2017-01-21 10:00 | NUR ---
WOUND CARE NURSE CONTACTED TO INQUIRE ABOUT WOUND VAC DRESSING CHANGE TODAY. SCOTT IS ACTING JAVA DEVELOPER ANALYST TODAY AND REPORTS THAT SHE IS NOT DOING WOUND CARE TODAY AND THAT SOMEONE SHOULD BE ABLE TO HELP DO THE WOUND VAC DRESSING CHANGE. RN IN CHARGE OF PATIENT HAS CABLE SPLICER WITH WOUND VAC. INTELLIGENCE CLERK NOTIFIED OF NEED FOR WOUND VAC DRESSING CHANGE. WILL CONTINUE TO MONITOR THIS SITUATION.
[2017-01-21 10:10] VITALS: BP 125/68
--- NOTE | 2017-01-21 10:32 | NUR ---
PHYSICAL THERAPIST REPORTS THAT PT'S CENTRAL LINE DRESSING NEEDS TO BE REINFORCED. DRESSING INTACT WITH EDGES CURLING DUE TO PT'S SANDOVAL. CENTRAL LINE INSERTION SITE COVERED. PT HAS FAMILY AT BEDSIDE AT THIS TIME, WILL CHANGE DRESSING WHEN FAMILY LEAVES ROOM. PT ASKED TO NOTIFY NURSE WHEN HE WAS READY FOR DRESSING CHANGE.
--- NOTE | 2017-01-21 11:53 | NUR ---
PT HAS QUESTIONS REGARDING PLAN OF CARE TODAY, SPECIFICALLY ABOUT ADVANCING HIS DIET AND REMOVING THE IJ CENTRAL LINE. NOTES WERE FOUND IN PATIENTS CHART THAT THE SURGEON STAFF SONOGRAPHER LAST NIGHT DECLINED TO ADVANCE DIET AND PAT WAS AGREEABLE TO WAITING ON SURGEON TO ROUND TODAY TO RE-ADDRESS. NOTES WERE ALSO FOUND ABOUT POSSIBLY PLACING A PIV BUT NO DEFINITIVE ORDER. PT WAS ALSO AGREEABLE TO WAITING ON DR CHAPMAN TO ROUND TO VERIFY INSERTION OF PIV VS PICC LINE IJ IS WORKING AND NOT CAUSING ANY DISCOMFORT. WILL CONTINUE WITH PLAN OF CARE.
[2017-01-21 13:14] VITALS: BP 117/61
--- NOTE | 2017-01-21 14:10 | NUR ---
PT AWAKE IN BED AT THIS TIME AFTER AMBULATING WITH PHYSICAL THERAPY. AT BEDSIDE. PT DENIES NEEDS AT THIS TIME. WILL CONTINUE PLAN OF CARE.
--- NOTE | 2017-01-21 15:27 | NUR ---
ORDERS FOR VASCULAR NURSE CONSULT FOR MIDLINE PLACEMENT AND D/C RT IJ CVL.
--- NOTE | 2017-01-21 16:20 | NUR ---
IV TUBING CHANGED AT THIS TIME. NEW SYRINGE OF MORPHINE SET UP FOR SECURITY THREAT ANALYST, SET UP TO INFUSE TO LT UPPER ARM MIDLINE. REMOVED RT IJ CVL. APPLIED PRESSURE FOR 5MINS AND INSTRUCTED PT TO LAY FLAT FOR 10MIN. PT DENIES ANY NEEDS AT THIS TIME. CALL LIGHT IN REACH, NAD NOTED, WILL CONTINUE PLAN OF CARE.
[2017-01-21 17:14] VITALS: BP 111/63
[2017-01-21 18:09] LABS: AEROBE ID Final report (())
--- NOTE | 2017-01-21 18:58 | NUR ---
WOUND VAC DRSG CHANGE TO OPEN SURGICAL WOUND LEFT LOWER ABDOMEN MEASURES 3CM X 17CM X DEPTH 5.5CM WOUND BED IS RED NO ODRO SCANT SAGUINOUS DRANAGE 2 PIECES BLACK FOAM APPLIED TO WOUND BED PATENT AT 125 MMHG LOW CONTINOUUS SUCTION PT TOLERATED WELL
--- NOTE | 2017-01-21 19:45 | NUR ---
PT IN BED RESTING QUIETLY. FAMILY PRESENT AT BEDSIDE. BREATHING EVEN AND UNLABORED. BED IN LOW POSITION, CALL LIGHT WITHIN REACH. WILL CTM.
[2017-01-21 20:00] VITALS: BP 106/62
--- NOTE | 2017-01-21 21:14 | NUR ---
PT FSBS 154. DAILY LANTUS GIVEN BUT HUMULIN NOT GIVEN. PT STATED HE WOULD NOT TAKE BOTH AT HOME AND THAT HE HASNT BEEN EATING THAT MUCH AND DIDNT WANT TO BOTTOM OUT.
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
[2017-01-22] VITALS: BP 123/70
--- NOTE | 2017-01-22 00:11 | NUR ---
SPOKE WITH MACHINE SHORTHAND TEACHER CASEY ABOUT PTS INJURING HER FOOT. SHE STATED THAT SINCE IT WENT SEVERAL DAYS WITHOUT BEING REPORTED WE DO NOT HAVE TO FILL OUT INCIDENT REPORT.
--- NOTE | 2017-01-22 03:58 | NUR ---
PT C/O CONSTIPATION. STATES HE HASNT HAD A BOWEL MOVEMENT IN TWO DAYS. GAVE PT PRUNE JUICE AND HE STATED HE WOULD DRINK IT AND LET ME OR DAY SHIFT NURSE KNOW IF IT WAS SUCCESSFUL.
[2017-01-22 04:00] VITALS: BP 112/89
[2017-01-22 04:54] LABS: BASOPHILS 0.1 % (0-2); EOSINOPHILS 0 % (0-7); HEMATOCRIT 25.6 % (42.0-54.0); HEMOGLOBIN 7.8 g/dL (13.5-17.5); IMMATURE GRANULOCYTES 0.8 % (0-5); LYMPHOCYTES 19.1 % (15-50); MCH 24.1 pg (26.0-34.0); MCHC 30.5 g/dL (31.0-37.0); MCV 79.3 fL (80.0-100.0); MEAN PLATELET VOLUME 8.3 fL (7.4-10.4); MONOCYTES 13.2 % (2-11); NEUTROPHILS 66.8 % (40-80); PLATELET COUNT 481 10x3/uL (130-400); RBC 3.23 10x6/uL (4.20-6.10); RDW 15.7 % (11.5-14.5); WBC 9.2 10x3/uL (4.8-10.8)
[2017-01-22 05:27] LABS: ALBUMIN 1.6 g/dL (3.4-5.0); ALKALINE PHOSPHATASE 59 U/L (46-116); BILIRUBIN - TOTAL 0.13 mg/dL (0.2-1.3); CALCIUM 7.5 mg/dL (8.5-10.1); CARBON DIOXIDE 27.6 mmol/L (21.0-32.0); CHLORIDE - SERUM 104 mmol/L (98-107); POTASSIUM - SERUM 3.2 mmol/L (3.5-5.1); PROTEIN - SERUM 5.6 g/dL (6.4-8.2); SODIUM 138 mmol/L (136-145); UREA NITROGEN 7 mg/dL (7-18)
[2017-01-22 05:34] LABS: ALT (SGPT) 6 U/L (10-68); CALC OSMOLALITY 272 mosm/kg (275-300); CREATININE - SERUM 0.7 mg/dL (0.6-1.3); GLUCOSE 84 mg/dL (74-106); eGFR NON AFRICAN AMERICAN > 90 mL/min (90-120)
--- NOTE | 2017-01-22 07:19 | NUR ---
PT SITTING UP TO SIDE OF BED, FIXING TO GET UP TO BATHROOM. RESP EVEN AND NONLABORED. LT UPPER MIDLINE INFUISNG NS AT KVO AND MORPHINE PROCESS IMPROVEMENT CONSULTANT SET FOR 2MG Q1OMIN WITH NO LOCKOUT. ABD STILL FIRM, PT NOT PASSING ANY GAS. PT STILL HAS NOT HAD BM, WILL SEE IF DOCTOR WILL ORDER SOMETHING FOR PT TO HAVE BM. PT DENIES ANY NEEDS AT THIS TIME, AT BEDSIDE, NAD NOTED, WILL CONTINUE TO MONITOR.
[2017-01-22 08:14] VITALS: BP 121/67
--- NOTE | 2017-01-22 11:31 | NUR ---
BLOOD SUGAR OF 150, NO COVERAGE NEEDED PER S/S. ALSO GAVE PT MOM ORDERED. PT DENIES ANY NEEDS AT THIS TIME. AT BEDSIDE, NAD NOTED, WILL CONTINUE TO MONITOR.
[2017-01-22 11:35] VITALS: BP 126/70
[2017-01-22 16:20] VITALS: BP 120/68
--- NOTE | 2017-01-22 16:33 | NUR ---
BLOOD SUGAR OF 93, PT STATES " THAT IS TOO LOW FOR ME, EARLIER THIS MORNING WHEN IT WAS IN THE 80S I GOT REALLY SICK." PT REFUSED TO TAKE GLUCOPHAGE AT THIS TIME, AND REQUESTED SOME ORANGE JUICE. WILL PROVIDED PT WITH ORANGE JUICE. PT DENIES ANY OTHER NEEDS AT THIS TIME. AND COMPANY AT BEDSIDE,NAD NOTED, WILL CONTINUE PLAN OF CARE.
--- NOTE | 2017-01-22 19:54 | NUR ---
RESUMED CARE OF PT, LYING IN BED RESPIRATIONS EVEN AND UNLABOREDON ROOM AIR. LEFT UPPERARM INFUSING NS @ KVO AND MORPHINE LEG BREAKER. PLAN OF CARE DISCUSSED, CALL LIGHT IN REACH. WOUND VAC PATENT. CALL LIGHT IN REACH. WILL CONTINUE TO MONITOR. SEE NURSE ASSESSMENT.
[2017-01-23] VITALS: BP 128/71
[2017-01-23 04:00] VITALS: BP 140/65
[2017-01-23 06:22] LABS: BASOPHILS 0.1 % (0-2); EOSINOPHILS 1.1 % (0-7); HEMATOCRIT 27.4 % (42.0-54.0); HEMOGLOBIN 8.3 g/dL (13.5-17.5); LYMPHOCYTES 14.1 % (15-50); MCH 23.9 pg (26.0-34.0); MCHC 30.3 g/dL (31.0-37.0); MEAN PLATELET VOLUME 8.4 fL (7.4-10.4); MONOCYTES 11.3 % (2-11); NEUTROPHILS 72.4 % (40-80); PLATELET COUNT 596 10x3/uL (130-400); RBC 3.47 10x6/uL (4.20-6.10); WBC 11.9 10x3/uL (4.8-10.8)
--- NOTE | 2017-01-23 06:25 | NUR ---
NO CHANGES FROM PREVIOUS ASSESSMENT, LOW ON SUGAR ACCORDING TO PT FSBS 102. REGULAR SPRITE GIVEN AND SUCKING ON HARD CANDY. WILL CONTINUE TO MONITOR.
[2017-01-23 06:40] LABS: ALBUMIN 1.6 g/dL (3.4-5.0); ALKALINE PHOSPHATASE 58 U/L (46-116); ALT (SGPT) 7 U/L (10-68); BILIRUBIN - TOTAL 0.15 mg/dL (0.2-1.3); CALC OSMOLALITY 278 mosm/kg (275-300); CALCIUM 7.7 mg/dL (8.5-10.1); CARBON DIOXIDE 30.2 mmol/L (21.0-32.0); CHLORIDE - SERUM 105 mmol/L (98-107); CREATININE - SERUM 0.6 mg/dL (0.6-1.3); GLUCOSE 74 mg/dL (74-106); POTASSIUM - SERUM 3.2 mmol/L (3.5-5.1); PROTEIN - SERUM 5.7 g/dL (6.4-8.2); SODIUM 142 mmol/L (136-145); eGFR NON AFRICAN AMERICAN > 90 mL/min (90-120)
[2017-01-23 06:41] LABS: UREA NITROGEN 5 mg/dL (7-18)
--- NOTE | 2017-01-23 07:35 | NUR ---
PT C/O OF ABD PAIN, AND FEELS LIKE ITS GETTING BIGGER. PENIS SWOLLEN AND ANIKA DRAINING MILKY DISCHARGE, PT STATES THAT HE FEELS A LITTLE PRESSURE TO BLADDER. DID BLADDER SCAN AT THIS TIME, ONLY SHOWING 94CC OF URINE IN BLADDER. ABD LOOKS BIGGER THAN YESTEREDAY, WILL NOTIFY DR. RODNEY AND PRIMARY. PT DENIES ANY NEEDS AT THIS TIME. CALL LIGHT IN REACH, NAD NOTED, SON AT BEDSIDE. WILL CONTINUE TO MONITOR.
[2017-01-23 08:14] VITALS: BP 138/68
--- NOTE | 2017-01-23 09:14 | NUR ---
AM MEDS GIVEN AT THIS TIME. PT IN BED, WANTS TO KNOW IF HE CAN GET A WALKER SO HE CAN AMBULATE WITH THE HELP OF HIS FAMILY. WILL HAVE PHYSICAL THERAPY PROVIDE PT WITH WALKER. PT DENIES ANY OTHER NEEDS AT THIS TIME. SON AT BEDSIDE, NAD NOTED, WILL CONTINUE PLAN OF CARE.
--- NOTE | 2017-01-23 09:26 | NUR ---
DISCUSSED PTS INCREASE IN ABDOMINAL GIRTH WITH AND PT STILL UNABLE TO PASS GAS OR HAVE BM, KUB SHOWED NO OBSTRUCTION OR CONPACTION BUT AIR FILLED LOOPS NOTED. WILL PROVIDE PT WITH GAS MEDS AND PERFORM FLEETS ENEMA. PT VERBALIZED UNDERSTANDING AND VOICED THANKS.
--- NOTE | 2017-01-23 09:36 | NUR ---
VANC TROUGH WAS 13 SO INCREASED DOSE TO 1.5GM VANC Q8HRS AND WILL GET NEW TROUGH LEVEL 0600 01-24
[2017-01-23 11:50] VITALS: BP 140/75
--- NOTE | 2017-01-23 12:06 | NUR ---
BLOOD SUGAR OF 175, S/S CALL FOR 10UNITS BUT PT ONLY WANTED TO GET 6UNITS OF HUMULIN R. MORPHINE HOOP FLARING MACHINE OPERATOR STOPPED AT THIS TIME. ADMINISTERED TORODAL ORDERED. FAMILY AT BEDSIDE, PT DENIES ANY OTHER NEEDS AT THIS TIME. CALL LIGHT IN REACH, NAD NOTED.
[2017-01-23 16:22] VITALS: BP 127/70
--- NOTE | 2017-01-23 19:48 | NUR ---
RESUMED CARE OF PT, LYING IN BED RESPIRATIONS EVEN AND UNLABORED ON ROOM AIR. LEFT UPPER ARM INFUSING NS @ KVO. WOUND VAC TO RLQ PATENT. FAMILY AT BEDSIDE, PLAN OF CARE DISCUSSED. CALL LIGHT IN REACH. SEE NURSE ASSESSMENT.
[2017-01-23 20:23] VITALS: BP 116/64; BP 173/87
--- NOTE | 2017-01-23 23:42 | NUR ---
LYING IN BED WITH EYES CLOSED, CALL LIGHT IN REACH. WILL CONTINUE TO MONTIOR.
[2017-01-24 01:21] VITALS: BP 107/56
[2017-01-24 04:48] VITALS: BP 111/56
--- NOTE | 2017-01-24 06:32 | NUR ---
NO CHANGES FROM PREVIOUS ASSESSMENT, CALL LIGHT IN REACH.
--- NOTE | 2017-01-24 07:15 | NUR ---
RESTING QUIETLY NAD NOTED
[2017-01-24 08:00] VITALS: BP 119/60
[2017-01-24 11:33] LABS: BASOPHILS 0.1 % (0-2); EOSINOPHILS 0 % (0-7); HEMATOCRIT 24.5 % (42.0-54.0); IMMATURE GRANULOCYTES 0.6 % (0-5); LYMPHOCYTES 13.7 % (15-50); MCHC 30.2 g/dL (31.0-37.0); MCV 79.5 fL (80.0-100.0); MEAN PLATELET VOLUME 8.6 fL (7.4-10.4); MONOCYTES 10.7 % (2-11); NEUTROPHILS 74.9 % (40-80); RBC 3.08 10x6/uL (4.20-6.10); RDW 16.1 % (11.5-14.5); WBC 12.2 10x3/uL (4.8-10.8)
[2017-01-24 11:34] LABS: PLATELET COUNT 461 10x3/uL (130-400)
[2017-01-24 11:38] LABS: HEMOGLOBIN 7.4 g/dL (13.5-17.5)
[2017-01-24 11:44] LABS: CALC OSMOLALITY 278 mosm/kg (275-300); CALCIUM 7.8 mg/dL (8.5-10.1); CARBON DIOXIDE 25.7 mmol/L (21.0-32.0); CHLORIDE - SERUM 106 mmol/L (98-107); GLUCOSE 94 mg/dL (74-106); POTASSIUM - SERUM 3.5 mmol/L (3.5-5.1); SODIUM 141 mmol/L (136-145); UREA NITROGEN 6 mg/dL (7-18); eGFR NON AFRICAN AMERICAN 84 mL/min (90-120)
[2017-01-24 12:00] VITALS: BP 125/66
--- NOTE | 2017-01-24 12:00 | NUR ---
TALKED WITH DR RODNEY CONCERNING PT HAS SWEELING TO HIS PENIS, TESTICLES AND UPPER LEGS. ALSO COMPLAINES OF NOT VOIDING MUCH. WILL MONITOR
--- NOTE | 2017-01-24 15:29 | NUR ---
WOUND VAC DRESSING CHANGE WOUND TYPE: surgical WOUND LOCATION: right lower abdomen MEASUREMENT DATE: 01/24/17 4cm x 17cm x 5.7cm (improved) FULL THICKNESS? yes MUSCLE, TENDON OR BONE EXPOSED? no UNDERMINING? no TUNNELING/SINUS? no APPEARANCE OF WOUND BED : red/beefy EXUDATE (AMOUNT, COLOR, ODOR): moderate serosanguinous no odor FOAM TYPE: black # OF PIECES USED: 2 pieces EDUCATION: healing process. -125mmhg mod continuous Pt tolerated well.
[2017-01-24 16:00] VITALS: BP 136/71
--- NOTE | 2017-01-24 18:53 | NUR ---
LYING QUIETLY WITH HOB UP. NO NEEDS VOICED
[2017-01-24 19:00] VITALS: BP 129/64
[2017-01-25] VITALS: BP 152/74
[2017-01-25 04:00] VITALS: BP 152/81
[2017-01-25 05:25] LABS: BASOPHILS 0.2 % (0-2); EOSINOPHILS 0.8 % (0-7); HEMATOCRIT 25.1 % (42.0-54.0); HEMOGLOBIN 7.9 g/dL (13.5-17.5); IMMATURE GRANULOCYTES 0.8 % (0-5); LYMPHOCYTES 11.1 % (15-50); MCH 24.6 pg (26.0-34.0); MCHC 31.5 g/dL (31.0-37.0); MCV 78.2 fL (80.0-100.0); MEAN PLATELET VOLUME 8.3 fL (7.4-10.4); NEUTROPHILS 76.1 % (40-80); PLATELET COUNT 512 10x3/uL (130-400); RBC 3.21 10x6/uL (4.20-6.10); RDW 16.4 % (11.5-14.5); WBC 13.2 10x3/uL (4.8-10.8)
[2017-01-25 06:11] LABS: ANION GAP 13.2 mmol/L (8-16); CALCIUM 7.4 mg/dL (8.5-10.1); CARBON DIOXIDE 26.5 mmol/L (21.0-32.0); MAGNESIUM - SERUM 1.8 mg/dL (1.8-2.4); POTASSIUM - SERUM 3.7 mmol/L (3.5-5.1)
[2017-01-25 06:12] LABS: CREATININE - SERUM 1.3 mg/dL (0.6-1.3)
--- NOTE | 2017-01-25 07:27 | NUR ---
PT'S REMAINS AT THE BEDSIDE. PT HAS SLEPT THROUGH MOST OF THE SHIFT. PT IS RESTING COMFORTABLY WITH EYES CLOSED AT THIS TIME. VITAL SIGNS ARE STABLE. WILL CONT TO MONITOR. PT DOES REPORT HAVING DIARRHEA ONCE AT 4 AM. HE STATES HIS BOTTOM IS RED AND EXCORIATED, REQUESTING DESITIN. BUTTPASTE GIVEN A BARRIER CREAM. WILL CONT TO MONITOR.
--- NOTE | 2017-01-25 07:40 | NUR ---
ASSESSMENT COMPLETED. AWAKE AND ALERT. RIGHT UPPER ARM MIDLINE IV WITH NS AT 20. WOUND VAC TO RIGHT MID ABD FUNCTIOING WELL. ANIKA DRAIN TO LOWER ABD.EDEMA TO GROIN AND SCROTOM. AT BEDSIDE
[2017-01-25 07:46] VITALS: BP 133/63
--- NOTE | 2017-01-25 10:07 | NUR ---
Rehab Note- Acute Rehab Prescreen order received. The patient has [employer] insurance and would require a PreAuth prior to an acute rehab stay. The patient does not have a functional need for an acute rehab stay at this time. Thank you for this referral! Angela Kerr RN Clinical Liaison, [facility] Rehab
--- NOTE | 2017-01-25 11:43 | NUR ---
Patient Name: MIGUEL ANGEL RODRIGUEZ Encounter No: [id number] : 1965 Primary Insurance: [employer] ADV Anticipated DC Date: 01-25-2017 Planned Disposition: Home with Home Health External Planned Provider: [facility] DCP follow-up note: CM RECEIVED ORDER FOR INPATIENT REHAB PRESCREEN, SPOKE TO DR. RODNEY WHO INFORMED CM THAT PT IS READY TO DISCHARGE TO NEXT LEVEL OF CARE. CM MET WITH PT AND SPOUSE IN ROOM TO DISCUSS REHAB OPTIONS. PT REPORTS THAT HE DOES NOT WANT TO GO TO REHAB AND WANTS TO GO HOME WITH HOME HEALTH. PT'S SPOUSE REPORTS PT WILL HAVE HER ASSISTANCE WELL ASSISTANCE OF PT'S CHILDREN IF NEEDED. PT REQUESTED [facility] TO MANAGE WOUND VAC AND ALSO REQUESTED PHYSICAL THERAPY SERVICES, CHOICE SIGNED. IMPORTANT MESSAGE FROM MEDICARE PROVIDED AND DISCUSSED; FAMILY TO TRANSPORT HOME AT DISCHARGE. PT UNDERSTANDS THAT CM WILL HAVE TO SPEAK TO DR. RODNEY REGARDING HOME HEALTH ORDERS, ARRANGE WOUND VAC AND HOME HEALTH IF DOCTOR PROVIDES ORDERS AND THAT HOSPITAL THERAPY HAS SIGNED OFF WITH NO FURTHER THERAPY NEED NOTED AND PT MAY NOT QUALIFY FOR CONTINUED HOME HEALTH PHYSICAL THERAPY SERVICES. CM CALLED AND SPOKE TO [facility] INPATIENT REHAB WHO INFORMED CM THAT PT DOES NOT HAVE SKILLED NEED OF INPATIENT REHAB SERVICES. CM CALLED FOR DR. RODNEY IN OFFICE, SPOKE TO DR. RODNEY'S NURSE, RAGINI, WHO WILL CHECK WITH DR. RODNEY REGARDING HOME HEALTH AND WOUND VAC ORDERS FOR DISCHARGE HOME CM PAGED AND SPOKE TO DR. CHAPMAN WHO INFORMED CM THAT SHE WILL REVIEW PT'S NEEDS AND LET CM KNOW. CM CALLED [facility], , SPOKE TO SCOTT WHO REPORTS THAT THEY ARE IN NETWORK WITH PT'S INSURANCE AND CAN MANAGE WOUND VAC THROUGH DR. FLETCHER ORDERS; SCOTT WILL CONTACT PT'S PRIMARY CARE DOCTOR REGARDING ANY PHYSICAL THERAPY ORDERS. CM FAXED HOME HEALTH REFERRAL TO [place], . CM CALLED PROSPER OF [facility], , INFORMED OF PENDING HOME VAC NEED, FAXED INFORMATION FOR WOUND VAC ARRANGEMENT TO [facility] AT [phone]. CM WAITING ON HOME HEALTH AND WOUND VAC ORDERS; CM TO FORWARD ORDERS TO [facility] AND [facility] WHEN RECEIVED. CM WAITING FURTHER INSTRUCTIONS FROM DR. CHAPMAN. Deacon Wolfe, CASE MANAGEMENT
--- NOTE | 2017-01-25 11:56 | NUR ---
AMBULATING IN HALLWAY WITH FAMILY. WOUND VAC FUNCTIONING . WILL CONTINUE TO MONITOR.
[2017-01-25 12:42] VITALS: BP 167/77
--- NOTE | 2017-01-25 13:31 | NUR ---
Nutrition follow-up: Diet: ADA low sodium PO intake 100% of meals Labs reviewed +BM Glucose with high readings Wt: 379# PO intake is good; pt going back to surgery 01/26 RDN following.
[2017-01-25 17:00] VITALS: BP 138/64
--- NOTE | 2017-01-25 19:20 | NUR ---
LYING QUIETLY WITH HOB UP. DEIES ANY NEEDS. WILL MONITOR
--- NOTE | 2017-01-25 19:52 | NUR ---
PT IN BED RESTING QUIETLY. PRESENT AT BEDSIDE. BREATHING EVEN AND UNLABOERD. DENIES ANY PAIN OR NEEDS AT THIS TIME. BED IN LOW POSITION, CALL LIGHT WITHIN REACH. WILL CTM.
[2017-01-25 21:29] VITALS: BP 142/65
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
[2017-01-26 00:48] VITALS: BP 128/59
[2017-01-26 05:25] VITALS: BP 143/67
[2017-01-26 06:12] LABS: BASOPHILS 0.2 % (0-2); EOSINOPHILS 0 % (0-7); HEMATOCRIT 24.9 % (42.0-54.0); HEMOGLOBIN 7.7 g/dL (13.5-17.5); IMMATURE GRANULOCYTES 0.4 % (0-5); LYMPHOCYTES 11.6 % (15-50); MCH 23.8 pg (26.0-34.0); MCHC 30.9 g/dL (31.0-37.0); MCV 77.1 fL (80.0-100.0); MEAN PLATELET VOLUME 8.2 fL (7.4-10.4); MONOCYTES 10.5 % (2-11); NEUTROPHILS 77.3 % (40-80); PLATELET COUNT 479 10x3/uL (130-400); RBC 3.23 10x6/uL (4.20-6.10); RDW 16.6 % (11.5-14.5); WBC 12.6 10x3/uL (4.8-10.8)
[2017-01-26 06:26] LABS: CALC OSMOLALITY 280 mosm/kg (275-300); CALCIUM 7.7 mg/dL (8.5-10.1); CARBON DIOXIDE 24.5 mmol/L (21.0-32.0); CHLORIDE - SERUM 105 mmol/L (98-107); CREATININE - SERUM 1.1 mg/dL (0.6-1.3); GLUCOSE 183 mg/dL (74-106); MAGNESIUM - SERUM 1.5 mg/dL (1.8-2.4); POTASSIUM - SERUM 3.2 mmol/L (3.5-5.1); SODIUM 139 mmol/L (136-145); UREA NITROGEN 8 mg/dL (7-18); eGFR NON AFRICAN AMERICAN 75 mL/min (90-120)
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
[2017-01-26 08:09] VITALS: BP 157/77
--- NOTE | 2017-01-26 10:27 | NUR ---
PT LEAVING FOR CT AT THIS TIME. DISCONNECTED FROM IV. NO CURRENT NEEDS.
[2017-01-26 12:54] VITALS: BP 145/77
--- NOTE | 2017-01-26 14:15 | NUR ---
AT BEDSIDE FOR CONSULT WILL BE NPO FOR PROCEDURE LATER THIS AFTERNOON. WOUND VAC CHANGE WILL BE AFTERWARDS IN CASE THEY CAN GO THROUGH OPEN SITE. NO CURRENT NEEDS. WILL CTM.
[2017-01-26 15:22] LABS: INR 1.24 (0.85-1.17); PROTIME 15.1 SECONDS (11.6-15.0)
--- NOTE | 2017-01-26 15:25 | NUR ---
PT CALLED C/O DIARRHEA REQUESTING SOMETHING TO HELP DECREASE EPISODES AND STATES HE HAS HAD 5 TODAY. PAGED . PT ALSO STATES HIS LAST ONE WAS BRIGHT RED BUT MAY HAVE BEEN HIS ORAL CONTRAST IT WAS RED WELL. CALLED CT AND THEY STATE THAT CAN BE NORMAL BUT WILL MAKE SURE IS AWARE.
--- NOTE | 2017-01-26 15:51 | NUR ---
CONSENTS OBTAINED FOR CT ASPIRATION. PT LEAVING NOW THE CT TEAM. NO FURTHER NEEDS.
--- NOTE | 2017-01-26 18:27 | NUR ---
PT BACK FROM PROCEDURE AND EVERYTHING WENT FINE. VSS AND BEING MONITERED PER POST PROCEDURE POLICY. WOUND VAC DRSG CHANGE COMPLETED AND MEASURE 3.1 X 17.1 X 4.7, WOUND BEDDING BEEFY RED. CANISTER CHANGED IT WAS FULL UNABLE TO DO ACCURATE DRAINAGE RECORD R/T SHIFT BEFORE NOT MARKING THEIR DRAINAGE. ANIKA DRAIN TO SUPRAPUBIC AREA REMOVED, STITCH REMOVED, NO COMPLICATIONS WITH REMOVAL AND TIP FULLY INTACT, GUAZE AND TEGADERM PLACED OVER INCISION SITE. PT REQUESTED PRN MORPHINE FOR PAIN AND WAS PROVIDED WITH IT. PT VOICED THANKS AND DENIES ANY FURTHER NEEDS AT THIS TIME. CL IN REACH, BED IN LOWEST, SIDE RAILS X2 AND AT BEDSIDE. WILL CPOC.
--- NOTE | 2017-01-26 19:25 | NUR ---
PT IN BED RESTING QUIETLY. BREATHING EVEN AND UNLABORED. BED IN LOW POSITION, CALL LIGHT WITHIN REACH. WILL CTM.
[2017-01-26 22:15] VITALS: BP 142/66
[2017-01-27 04:00] VITALS: BP 167/84
[2017-01-27 06:01] LABS: BASOPHILS 0.2 % (0-2); EOSINOPHILS 0 % (0-7); HEMOGLOBIN 7.7 g/dL (13.5-17.5); IMMATURE GRANULOCYTES 0.3 % (0-5); LYMPHOCYTES 9.4 % (15-50); MCH 24.1 pg (26.0-34.0); MCHC 30.8 g/dL (31.0-37.0); MCV 78.1 fL (80.0-100.0); MEAN PLATELET VOLUME 8.1 fL (7.4-10.4); MONOCYTES 11.8 % (2-11); NEUTROPHILS 78.3 % (40-80); PLATELET COUNT 482 10x3/uL (130-400); RDW 16.6 % (11.5-14.5); WBC 11.6 10x3/uL (4.8-10.8)
[2017-01-27 06:24] LABS: CALC OSMOLALITY 281 mosm/kg (275-300); CALCIUM 7.6 mg/dL (8.5-10.1); CARBON DIOXIDE 25.9 mmol/L (21.0-32.0); CHLORIDE - SERUM 105 mmol/L (98-107); CREATININE - SERUM 1.1 mg/dL (0.6-1.3); GLUCOSE 181 mg/dL (74-106); POTASSIUM - SERUM 3.4 mmol/L (3.5-5.1); SODIUM 140 mmol/L (136-145); UREA NITROGEN 8 mg/dL (7-18); eGFR NON AFRICAN AMERICAN 75 mL/min (90-120)
--- NOTE | 2017-01-27 08:20 | NUR ---
INTRODUCED MYSELF TO PT PRIMARY RN FOR TODAYS SHIFT. PT A&O SITTING UP IN BED RESTING QUIETLY. SHIFT ASSESSMENT COMPLETED. PT HAS L.UPPER ARM MIDLINE WITH BIOPATCH INTACT, SWAB CAPS IN USE, DRSG CDI AND SL. PT HAS A WOUND VAC TO RLQ OF ABDOMEN WITH LITTLE DRAINAGE, FEDERICO TO LLQ CLEAN DRY AND INTACT. PT STILL HAS GENERALIZED SWELLING ALL OVER BUT IS BENEFITING FROM LASIX BEING INCREASED AND HAVING GREAT OUTPUT AND WE ARE MONITERING CLOSELY FOR ACCURACY. MORNING MEDICATIONS GIVEN ALONG WITH PRN TYLENOL FOR [place]. POTASSIUM REPLACED PER EP FOR K OF 3.4. PT DENIES ANY FURTHER NEEDS AT THIS TIME. CL IN REACH, AT BEDSIDE WILL CPOC.
[2017-01-27 08:46] VITALS: BP 131/65
--- NOTE | 2017-01-27 11:40 | NUR ---
FSBS 219. PT REC'D 15UNITS OF SS INSULIN. PT SITTING UP IN BEDSIDE CHAIR RESTING COMFORTABLY. PT STATES OVERALL HE IS FEELING PRETTY GOOD. PT DENIES ANY CURRENT PAIN OR NEEDS AT THIS TIME. CL IN REACH. WILL CPOC.
[2017-01-27 12:07] VITALS: BP 105/56
--- NOTE | 2017-01-27 12:38 | NUR ---
Nutrition follow-up: Diet: ADA consistent CHO PO intake 75-100% of meals Labs reviewed Wt: 374# +BMs, loose Pt s/p partial colectomy PO intake good at this time RDN following.
--- NOTE | 2017-01-27 16:35 | NUR ---
FSBS 161 PROVIDED PT WITH 10 UNITS OF SS INSULIN ORDERED. PROVIDED PT WITH PRN LOMOTIL FOR DIARRHEA HE STATES HE HAS HAD 5 EPISODES TODAY. PT SITTING UP IN BED WAITING ON DINNER AND DENIES ANY FURTHER NEEDS AT THIS TIME. CL IN REACH. WILL CPOC.
[2017-01-27 19:00] VITALS: BP 132/68
--- NOTE | 2017-01-27 19:54 | NUR ---
PT IN BED RESTING QUIETLY. BREATHING EVEN AND UNLABORED. BED IN LOW POSITION, CALL LIGHT WITHIN REACH. WILL CTM.
[2017-01-28 04:00] VITALS: BP 148/76
--- NOTE | 2017-01-28 07:30 | NUR ---
AM ROUNDS COMPLETED. PT FAMILAR WITH ME HIS NURSE FROM THE PAST COUPLE DAYS. PT A&O AND HOPING TO BE DISCHARGED TODAY. SHIFT ASSESSMENT COMPLETED. PT DENIES ANY CURRENT PAIN OR NEEDS. CL IN REACH. WILL CHECK ORDERS/CHART AND LABS AND CPOC.
[2017-01-28 07:38] LABS: BASOPHILS 0.2 % (0-2); EOSINOPHILS 2.7 % (0-7); HEMATOCRIT 23.9 % (42.0-54.0); IMMATURE GRANULOCYTES 0.3 % (0-5); LYMPHOCYTES 14.2 % (15-50); MCH 23.8 pg (26.0-34.0); MCHC 30.5 g/dL (31.0-37.0); MCV 77.9 fL (80.0-100.0); MEAN PLATELET VOLUME 8.1 fL (7.4-10.4); MONOCYTES 12.7 % (2-11); NEUTROPHILS 69.9 % (40-80); PLATELET COUNT 451 10x3/uL (130-400); RBC 3.07 10x6/uL (4.20-6.10); RDW 16.8 % (11.5-14.5)
[2017-01-28 07:39] LABS: ANION GAP 9.3 mmol/L (8-16); CALCIUM 7.7 mg/dL (8.5-10.1); CARBON DIOXIDE 30.1 mmol/L (21.0-32.0); CREATININE - SERUM 1.2 mg/dL (0.6-1.3); MAGNESIUM - SERUM 1.7 mg/dL (1.8-2.4); POTASSIUM - SERUM 3.4 mmol/L (3.5-5.1)
[2017-01-28 07:49] LABS: WBC 8.6 10x3/uL (4.8-10.8)
[2017-01-28 07:50] LABS: HEMOGLOBIN 7.3 g/dL (13.5-17.5)
[2017-01-28 08:55] VITALS: BP 138/73
--- NOTE | 2017-01-28 10:16 | NUR ---
PTS HGB 7.3 AWARE AND ORDERED 2 UNITS OF PRBCS. DISCUSSED THIS WITH PT AND HIS AND THEY VERBALIZED UNDERSTANDING OF NEEDING THE BLOOD, THEY ARE STILL HOPING TO BE DISCHARGED LATER TODAY. WILL CPOC.
[2017-01-28] MEDS ORDERED: OXYCODONE HCL5 MG PO (12:36)
[2017-01-28] MEDS ORDERED: KEFLEX500 MG PO (12:36)
[2017-01-28] MEDS ORDERED: FLAGYL500 MG PO (12:36)
--- NOTE | 2017-01-28 12:46 | NUR ---
INITIATED PTS BLOOD TRANSFUSION UNIT 02/15. PT SITTING UP IN BED RESTING QUIETLY EATING LUNCH. VSS AND WILL BE MONITERED [id number] PER POLICY. FIRST 15MINS OF TRANSFUSION I STAYED AT BEDSIDE AND NO REACTION WAS NOTED. PT DENIES ANY CURRENT NEEDS AT THIS TIME. FAMILY AT BEDSIDE. WILL CPOC.
--- NOTE | 2017-01-28 14:39 | NUR ---
Wound vac dressing changed. Right lower abdomen. 4cm x 16.5cm x 6cm Wound bed red and beefy. No odor. 2 pieces black foam used. Pt tolerated well.
--- NOTE | 2017-01-28 14:57 | NUR ---
FIRST UNIT OF BLOOD TRANSFUSION COMPLETED. VSS THROUGHOUT TRANSFUSION AND NO REACTION NOTED. PT SITTING UP IN BED READY TO START SECOND UNIT BECAUSE HE WILL BE DISCHARGED AFTER BOTH UNITS ARE COMPLETED. WILL BEGIN SECOND UNIT NOW.
--- NOTE | 2017-01-28 16:12 | NUR ---
FSBS 297 PT REC'D 20 UNITS OF SS INSULIN. PT RESTING QUIETLY IN BED WITH AT BEDSIDE RECIEVING SECOND UNIT OF BLOOD. NO REACTION OR ISSUES NOTED AND VSS. WILL CTM.
--- NOTE | 2017-01-28 17:04 | NUR ---
Patient Name: MIGUEL ANGEL RODRIGUEZ Encounter No: [id number] : 1965 Primary Insurance: [employer] ADV Anticipated DC Date: 01-28-2017 Planned Disposition: Home with Home Health External Planned Provider: [facility] DCP follow-up note: CM RECEIVED DISCHARGE ORDER, SPOKE TO PROSPER AT [facility] WHO RECEIVED AUTHORIZATION FROM PT'S INSURANCE COMPANY FOR WOUND VAC. CM PRINTED WOUND VAC PLACEMENT, PROVIDED TO PT, DISCUSSED, PT REPORTED UNDERSTANDING, PT SIGNED PLACEMENT RECEIPT. IMPORTANT MESSAGE FROM MEDICARE PROVIDED AND DISCUSSED. PT'S SPOUSE HERE TO TRANSPORT HOME AT DISCHARGE. COPY TO PT, COPY TO CHART. CM CONTACTED ANGELINA IN MATERIALS, PROVIDED COPY OF PLACEMENT WITH SIGNATURE, RECEIVED WOUND VAC, PLACED IN ROOM, NURSE NOTIFIED. CM CALLED [facility], , SPOKE TO SCOTT WHO HAS PT ON SCHEDULE FOR TUESDAY ADMIT. CM FAXED DISCHARGE INFORMATION TO [facility] AT [phone]. CM FAXED SIGNED PLACEMENT ORDER TO [facility] AT [phone]. NO FUTHER DISHCHARGE NEEDS IDENTIFIED. Deacon Wolfe, CASE MANAGEMENT
--- NOTE | 2017-01-28 18:28 | NUR ---
SECOND UNIT OF BLOOD TRANSFUSION COMPLTED. VSS THROUGHOUT ENTIRE INFUSION. D/C PTS L.UPPER ARM MIDLINE WITH CATHETER TIP FULLY INTACT. D/C PTS WOUND VAC AND CONNECTED HIM TO THE [facility]BI[facility] HOME WOUND VAC UNIT. TEACHING PROVIDED AND ALL WOUND VAC ACCESSORIES GIVEN. DISCHARGE TEACHING PROVIDED AND PAPERS SIGNED WITH HARD SCRIPT GIVEN FOR NEW NARCOTIC. PT VERBALIZED UNDERSTANDING AND DENIES ANY QUESTIONS OR CONCERNS. BELONGINGS COLLECTED AND PT NOW READY TO LEAVE. AT BEDSIDE FOR TRANSPORTATION. NO FURTHER NEEDS.
[2017-02-06 16:07] LABS: AEROBE ID Final report (())
--- NOTE | 2017-02-10 13:26 | HP ---
PATIENT: MIGUEL ANGEL RODRIGUEZ MEDICAL RECORD: [id number] ACCOUNT: [id number] LOCATION:D. D.2113 : [birth year] ADMISSION DATE: 01/11/17 HISTORY AND PHYSICAL EXAMINATION ADDENDUM CHIEF COMPLAINT: Appendicitis. HISTORY OF PRESENT ILLNESS: The patient had been hospitalized at [facility]. He underwent percutaneous drainage of a periappendiceal abscess. He has been monitored by the interventional radiologist. The drain has been removed. He is now having fever. Increased pain in the right lower quadrant. He underwent a CT scan. It was initially read out as an abscess. The patient underwent a CT-guided drainage today and it is now believed that may be the patient has an infected hematoma. He has been on Plavix due to history of coronary artery disease with stents. I am going to wait for 5 days to allow the effects of Plavix to wear off. I will keep him on IV antibiotics. My plan is for a laparoscopic appendectomy versus an open procedure versus right hemicolectomy on Tuesday. Palpation aggravates. Nothing alleviates. Symptoms are worsening. They are nonradiating. He does have localized peritonitis. This is a history and physical addendum. For the typed portion of the history and physical, please see the chart, this would include the past medical and surgical history, current medications, allergies, and social history as well as family history. REVIEW OF SYSTEMS: Positive for abdominal pain. Positive for fever. No nausea, no vomiting. Positive for diaphoresis, no shortness of breath, no chest pain, no headache. The review of systems is negative other than as is described above. PHYSICAL EXAMINATION: GENERAL: The patient does not appear acutely ill. He does not appear chronically ill. VITAL SIGNS: Reviewed. EARS: External ears appear normal. EYES: Extraocular movements are intact. NECK: Trachea is midline. CHEST: No intercostal retractions. PULMONARY: Nonlabored, no stridor. ABDOMEN: Right lower quadrant tenderness with guarding. There is peritonitis to percussion. No Gonzales sign. There is a Rovsing sign. EXTREMITIES: No peripheral cyanosis. INTEGUMENT: No rash, no ulcerations. PSYCHIATRIC: Normal affect. NEUROLOGIC: Nonfocal, no lethargy. The patient answers questions appropriately, moves all extremities well. BACK: No thoracic kyphosis. LYMPHATICS: No lymphangitic streaking of the exposed extremities. IMPRESSION: Acute appendicitis with periappendiceal inflammation and likely an HISTORY AND PHYSICAL [id number] MIGUEL ANGEL RODRIGUEZ infected hematoma. PLAN: Diabetic diet. IV antibiotics. IV antiemetics. IV hydration. Hold Plavix. DVT prophylaxis with Lovenox. Operation for appendicitis, likely on Tuesday. TRANSINT:[id number] Voice Confirmation ID: [id number] DOCUMENT ID: [id number] REN JACOB MD at 1326 CC: JESSA KAPLAN MD and BUZZ REDDY MD [id number] DICTATION DATE: 01/12/171847 FURNITURE FINISHER: 01/12/172142 DIS IN 01/28/17 [facility] [address] [place] [address]
== END 2017-01-28 18:36 | disposition home or self-care (01) | DRG 854 ==
LOC: D.ER 16:28 → D.ICU 20:43 → D.M2 20:43 → D.MS 20:43 → D.ICU 01-18 21:12 → D.M2 01-19 15:19
PROVIDERS: Emergency Medicine; Family Medicine; Internal Medicine Nephrology; Physician Assistant; Radiology Diagnostic Radiology; Specialist; Student in an Organized Health Care Education/Training Program; Surgery; ADMIT Surgery
PROC: 0DNW4ZZ Release Peritoneum, Percutaneous Endoscopic Approach (ICD-10-PCS; 2017-01-17)
PROC: 0DBF0ZZ Excision of Right Large Intestine, Open Approach (ICD-10-PCS; 2017-01-17 12:00)
PROC: 0JB80ZZ Excision of Abdomen Subcutaneous Tissue and Fascia, Open Approach (ICD-10-PCS; 2017-01-17 12:00)
PROC: 0JB80ZZ Excision of Abdomen Subcutaneous Tissue and Fascia, Open Approach (ICD-10-PCS; 2017-01-17 12:00)
PROC: BT141ZZ Fluoroscopy of Kidneys, Ureters and Bladder using Low Osmolar Contrast (ICD-10-PCS; 2017-01-18)
PROC: 0T7B3DZ Dilation of Bladder with Intraluminal Device, Percutaneous Approach (ICD-10-PCS; 2017-01-18)
PROC: 0WPFX0Z Removal of Drainage Device from Abdominal Wall, External Approach (ICD-10-PCS; principal; 2017-01-26 15:30)
DX: A41.9 Sepsis, unspecified organism (principal); K63.0 Abscess of intestine; R78.81 Bacteremia; Z79.4 Long term (current) use of insulin; Z95.5 Presence of coronary angioplasty implant and graft; E11.65 Type 2 diabetes mellitus with hyperglycemia; K21.9 Gastro-esophageal reflux disease without esophagitis; N40.0 Benign prostatic hyperplasia without lower urinary tract symptoms; N32.89 Other specified disorders of bladder; I25.10 Atherosclerotic heart disease of native coronary artery without angina pectoris; Z53.31 Laparoscopic surgical procedure converted to open procedure

== ENCOUNTER → 2017-02-02 14:44 | Outpatient (CLI) | payer MEDICARE ==
[2017-01-18 17:02] VITALS: BMI 38.6
[~2017-02-02 14:44] MED LIST: BAYER CHEWABLE81 MG PO; CELEXA40 MG PO; COREG25 MG PO; FARXIGA10 MG PO; FLAGYL500 MG PO; FLAXSEED OIL1000 MG PO; FUROSEMIDE20 MG PO; HYDROCODONE-APA1 TAB PO; KEFLEX500 MG PO; KLOR-CON 1010 MEQ PO; LANTUS INSULIN10 ML SC; METFORMIN HCL500 M1 PO; NEURONTIN600 MG PO; NIASPAN1000 MG PO; NOVOLOG MIX 70/10 ML SQ; OXYCODONE HCL5 MG PO; PLAVIX75 MG PO; PRAVACHOL40 MG PO
[2017-02-02 19:11] LABS: CALC OSMOLALITY 283 mosm/kg (275-300); CALCIUM 8.1 mg/dL (8.5-10.1); CARBON DIOXIDE 30.4 mmol/L (21.0-32.0); CHLORIDE - SERUM 102 mmol/L (98-107); GLUCOSE 207 mg/dL (74-106); SODIUM 140 mmol/L (136-145); UREA NITROGEN 9 mg/dL (7-18); eGFR NON AFRICAN AMERICAN 84 mL/min (90-120)
[2017-02-02 19:13] LABS: BASOPHILS 0.3 % (0-2); EOSINOPHILS 4.9 % (0-7); HEMATOCRIT 29.7 % (42.0-54.0); IMMATURE GRANULOCYTES 0.2 % (0-5); LYMPHOCYTES 13.5 % (15-50); MCH 24.6 pg (26.0-34.0); MCHC 30.3 g/dL (31.0-37.0); MCV 81.1 fL (80.0-100.0); MONOCYTES 8.9 % (2-11); NEUTROPHILS 72.2 % (40-80); PLATELET COUNT 507 10x3/uL (130-400); RBC 3.66 10x6/uL (4.20-6.10); RDW 17.7 % (11.5-14.5); WBC 9.2 10x3/uL (4.8-10.8)
== END | disposition home or self-care (01) ==
LOC: D.LABREF 14:44
PROVIDERS: Student in an Organized Health Care Education/Training Program
DX: D64.9 Anemia, unspecified (principal); Z51.81 Encounter for therapeutic drug level monitoring; Z79.2 Long term (current) use of antibiotics

== ENCOUNTER → 2017-04-06 10:03 | Day surgery (SDC) | payer MEDICARE ==
[~2017-04-06] VITALS: Ht 182.9 cm; Wt 131.1 kg
--- NOTE | ~2017-04-06 | OP ---
PATIENT NAME: MIGUEL ANGEL RODRIGUEZ MEDICAL RECORD: [id number] :[birth year] LOCATION:D.[facility] ADMISSION DATE: SURGEON: MOISES PRINGLE MD DATE OF OPERATION: 04/06/2017 SURGEON: Moises Pringle MD ANESTHESIA: MAC. ANESTHESIOLOGIST: Eric Villalpando CRNA PREOPERATIVE DIAGNOSIS: Retained right ureteral stent. PROCEDURES: Cystoscopy and right ureteral stent removal. SPECIMENS: Right ureteral stent. BLOOD LOSS: None. CLINICAL HISTORY: This is a 51-year-old male, who in fall of 2016 developed appendicitis. He was treated initially with antibiotics at [facility]. He then developed an appendiceal abscess and Dr. Vogt had to perform a right hemicolectomy. Because of the severe inflammation in the area, Dr. Vogt was worried about the integrity of the ureter. I had to perform a retrograde pyelogram and insert a ureteral stent. The ureter was intact on the retrograde pyelogram. Insertion of the stent was to make sure that there was no obstruction from periureteral inflammation. The stent is due to be removed now. There was no string placed on the stent and so a cystoscopy will be required to remove the stent. The patient requests IV sedation for the stent removal. He is allergic to DILAUDID, HYDROMORPHONE, SULFA, CORTICOSTEROIDS. We gave him Levaquin IV fashion photographer to the OR. DESCRIPTION OF PROCEDURE: The patient was given IV sedation. He was then placed in the dorsal lithotomy position and prepped and draped. The urethral meatus was rather narrow and would not allow a 21-Montserratian cystoscope to pass. Male sounds up to 26-Montserratian were used to dilate the urethral meatus. The 21-Montserratian cystoscope was then placed into the bladder and we found the stent. Grasping forceps were placed around the stent and the stent was entirely removed. It will be sent to pathology for identification. The patient was then awakened and brought to the preoperative holding area. TRANSINT:[id number] Voice Confirmation ID: [id number] DOCUMENT ID: [id number] MOISES PRINGLE MD at 1604 CC: [id number] DICTATION DATE: 04/06/17 1343 MOTOR CHECKER: 04/06/17 [address] [place] [address]
[~2017-04-06 10:03] MED LIST changes: +FLOMAX0.4 MG PO
[2017-04-06 11:10] LABS: HEMATOCRIT 33.1 % (42.0-54.0); MCHC 30.2 g/dL (31.0-37.0); MCV 79.4 fL (80.0-100.0); MEAN PLATELET VOLUME 8.2 fL (7.4-10.4); RBC 4.17 10x6/uL (4.20-6.10); RDW 15.5 % (11.5-14.5); WBC 9.7 10x3/uL (4.8-10.8)
[2017-04-06 11:12] VITALS: BP 131/73; Ht 182.9 cm; Wt 131.1 kg
[2017-04-06 11:20] LABS: ANION GAP 14.6 mmol/L (8-16); CALCIUM 9.2 mg/dL (8.5-10.1); CARBON DIOXIDE 26.7 mmol/L (21.0-32.0); CREATININE - SERUM 1.3 mg/dL (0.6-1.3); POTASSIUM - SERUM 4.3 mmol/L (3.5-5.1)
== END | disposition home or self-care (01) ==
LOC: D.OPS 10:03 → D.PAN 12:45
PROVIDERS: Anesthesiology
DX: Z46.6 Encounter for fitting and adjustment of urinary device (principal); Z88.5 Allergy status to narcotic agent; Z88.2 Allergy status to sulfonamides; Z88.8 Allergy status to other drugs, medicaments and biological substances; Z01.812 Encounter for preprocedural laboratory examination

== ENCOUNTER → 2017-08-03 12:54 | Outpatient (CLI) | payer MEDICARE ==
[2017-04-06 11:12] VITALS: BMI 39.3
[~2017-08-03 12:54] MED LIST changes: +BASAGLAR K100 UNIT/1 SQ
== END | disposition home or self-care (01) ==
LOC: D.US 12:54
DX: R10.9 Unspecified abdominal pain (principal); M94.0 Chondrocostal junction syndrome [Tietze]

== ENCOUNTER → 2017-08-31 10:50 | Outpatient (CLI) | payer MEDICARE ==
[2017-04-06 11:12] VITALS: BMI 39.3
== END | disposition home or self-care (01) ==
LOC: D.RAD 10:30
DX: M54.6 Pain in thoracic spine (principal); M54.5 Low back pain

== ENCOUNTER 2017-09-18 15:26 | Emergency (ER) | payer MEDICARE ==
[~2017-09-18] VITALS: Ht 182.9 cm; Wt 127.3 kg
[~2017-09-18 15:26] MED LIST changes: -BASAGLAR K100 UNIT/1 SQ
[2017-09-18 15:37] VITALS: Ht 182.9 cm; Wt 127.3 kg
[2017-09-18] MEDS ORDERED: BASAGLAR K100 UNIT/1 SQ (15:43)
[2017-09-18 16:57] LABS: BASOPHILS 0.4 % (0-2); EOSINOPHILS 2.4 % (0-7); HEMATOCRIT 35.8 % (42.0-54.0); IMMATURE GRANULOCYTES 0.2 % (0-5); LYMPHOCYTES 27.8 % (15-50); MCH 26.3 pg (26.0-34.0); MCHC 33.5 g/dL (31.0-37.0); MCV 78.5 fL (80.0-100.0); MEAN PLATELET VOLUME 8.8 fL (7.4-10.4); MONOCYTES 8.8 % (2-11); NEUTROPHILS 60.4 % (40-80); PLATELET COUNT 240 10x3/uL (130-400); RBC 4.56 10x6/uL (4.20-6.10); RDW 13.8 % (11.5-14.5); WBC 8.4 10x3/uL (4.8-10.8)
[2017-09-18 17:06] LABS: APTT 34.8 SECONDS (22.8-39.4); INR 0.98 (0.85-1.17); PROTIME 12.6 SECONDS (11.6-15.0)
[2017-09-18 17:16] LABS: ALBUMIN 3.1 g/dL (3.4-5.0); ALKALINE PHOSPHATASE 79 U/L (46-116); BILIRUBIN - TOTAL 0.42 mg/dL (0.2-1.3); CALCIUM 8.1 mg/dL (8.5-10.1); CARBON DIOXIDE 24.8 mmol/L (21.0-32.0); CHLORIDE - SERUM 97 mmol/L (98-107); CREATININE - SERUM 1.4 mg/dL (0.6-1.3); PROTEIN - SERUM 7.1 g/dL (6.4-8.2); SODIUM 133 mmol/L (136-145); UREA NITROGEN 27 mg/dL (7-18); eGFR NON AFRICAN AMERICAN 57 mL/min (90-120)
[2017-09-18 17:45] LABS: CKMB 1.2 U/L (0.0-3.6)
[2017-09-18 18:08] LABS: ALT (SGPT) 17 U/L (10-68); TROPONIN-I < 0.017 ng/mL (0.000-0.060)
[2017-09-18 18:09] LABS: CALC OSMOLALITY 281 mosm/kg (275-300); GLUCOSE 292 mg/dL (74-106)
[2017-09-18 18:14] LABS: CHOL - HDL RATIO 11.7 ratio (2.3-4.9); CHOLESTEROL, TOTAL 339 mg/dL (0-200); HDL CHOLESTEROL 29 mg/dL (32-96); TRIGLYCERIDE 2645 mg/dL (30-200)
[2017-09-18 18:35] VITALS: BP 132/72
== END 2017-09-18 18:36 | disposition home or self-care (01) ==
LOC: D.ER 15:26
PROVIDERS: Family Medicine
DX: R00.2 Palpitations (principal); E11.9 Type 2 diabetes mellitus without complications

== ENCOUNTER → 2017-12-26 16:47 | Outpatient (CLI) | payer MEDICARE ==
[2017-09-18 15:37] VITALS: BMI 38.0
[~2017-12-26 16:47] MED LIST changes: +BASAGLAR K100 UNIT/1 SQ
== END | disposition home or self-care (01) ==
LOC: D.LABREF 16:47
DX: R31.9 Hematuria, unspecified (principal); D72.829 Elevated white blood cell count, unspecified

== ENCOUNTER → 2018-01-24 17:51 | Outpatient (CLI) | payer MEDICARE ==
[2017-09-18 15:37] VITALS: BMI 38.0
== END | disposition home or self-care (01) ==
LOC: D.LABREF 17:51
DX: N39.0 Urinary tract infection, site not specified (principal)

== ENCOUNTER → 2018-01-31 05:54 | Day surgery (SDC) | payer MEDICARE ==
[~2018-01-31] VITALS: Ht 182.9 cm; Wt 127.0 kg
--- NOTE | ~2018-01-31 | OP ---
PATIENT NAME: MIGUEL ANGEL RODRIGUEZ MEDICAL RECORD: [id number] LOCATION:D.OPS ADMISSION DATE: SURGEON: MOISES PRINGLE MD DATE OF OPERATION: 01/31/2018 SURGEON: Moises Pringle MD ANESTHESIA: TIVA by Chata Hoff CRNA. DIAGNOSIS: Obstructive benign prostatic hypertrophy. PROCEDURE: Cystoscopy and UroLift implant times 4. FINDINGS: Bilateral lobe hyperplasia. No bladder tumors seen. IPSS score is 31 and quality of life score is 6. BLOOD LOSS: None. CLINICAL HISTORY: This is a 52-year-old male with quite significant obstructive voiding symptoms. This was noted on cystoscopy. He does have a history of diabetes mellitus. He has several drug allergies, but no allergies to Ancef. 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 He comes today to have the UroLift procedure done. DESCRIPTION OF PROCEDURE: The patient was given IV sedation. He was then placed into dorsal lithotomy position and prepped and draped. He has some lateral lobe hyperplasia and some tightening of the bladder neck. Going into the bladder, there is a moderately trabeculated bladder with no bladder tumors seen. Single ureteral orifices are seen on each side. We then placed the 2 UroLift devices close to the bladder neck. These are placed 2 cm distal to the bladder neck. This was in the anterolateral lobes. Two further devices were placed, one on each side, at the level of the verumontanum. This resulted in nice wide open urethral channel through the prostatic urethra. The bladder was then emptied through the scope and then the scope was removed. The patient will be seen in followup in 1 months' time to check on his voiding symptoms. TRANSINT:[id number] Voice Confirmation ID: [id number] DOCUMENT ID: [id number] MOISES PRINGLE MD at 1145 CC: [id number] DICTATION DATE: 01/31/18929 PROGRAM PARAPROFESSIONAL: 01/31/18 [id number] [place] [address]
[~2018-01-31 05:54] MED LIST changes: +CIPRO500 MG PO; +XANAX XR0.5 MG PO
[2018-01-31 06:18] LABS: HEMATOCRIT 36.6 % (42.0-54.0); HEMOGLOBIN 11.4 g/dL (13.5-17.5); MCH 25.4 pg (26.0-34.0); MCHC 31.1 g/dL (31.0-37.0); MCV 81.7 fL (80.0-100.0); MEAN PLATELET VOLUME 8.6 fL (7.4-10.4); RBC 4.48 10x6/uL (4.20-6.10); RDW 14.1 % (11.5-14.5); WBC 6.8 10x3/uL (4.8-10.8)
[2018-01-31 06:25] LABS: ANION GAP 14.4 mmol/L (8-16); CALCIUM 8.9 mg/dL (8.5-10.1); CARBON DIOXIDE 27.1 mmol/L (21.0-32.0); CREATININE - SERUM 1.2 mg/dL (0.6-1.3); POTASSIUM - SERUM 4.5 mmol/L (3.5-5.1)
[2018-01-31 06:31] LABS: APTT 28.1 SECONDS (22.8-39.4); INR 0.97 (0.85-1.17); PROTIME 12.4 SECONDS (11.6-15.0)
[2018-01-31 07:09] VITALS: BP 135/76; Ht 182.9 cm; Wt 127.0 kg
== END | disposition home or self-care (01) ==
LOC: D.OPS 05:54
PROVIDERS: Anesthesiology
DX: N40.1 Benign prostatic hyperplasia with lower urinary tract symptoms (principal); N13.8 Other obstructive and reflux uropathy; E11.9 Type 2 diabetes mellitus without complications; Z01.812 Encounter for preprocedural laboratory examination

== ENCOUNTER 2018-01-31 14:44 | Emergency (ER) | payer MEDICARE ==
[~2018-01-31] VITALS: Ht 185.4 cm; Wt 127.3 kg
[2018-01-31 14:57] VITALS: Ht 185.4 cm; Wt 127.3 kg
[2018-01-31 15:40] LABS: APPEARANCE HAZY (CLEAR); BILIRUBIN NEGATIVE (NEGATIVE); COLOR DK YELLOW (YELLOW); GLUCOSE 1000 mg/dL (NEGATIVE); KETONE NEGATIVE (NEGATIVE); NITRITE NEGATIVE (NEGATIVE); PROTEIN 1+ mg/dL (NEGATIVE); UROBILINOGEN NORMAL (NORMAL)
[2018-01-31 15:41] LABS: BACTERIA FEW /hpf (NONE SEEN); RED CELLS - URINE >50 /hpf (0-5); WHITE CELLS - URINE 25-50 /hpf (0-5)
[2018-01-31 16:16] VITALS: BP 154/87
== END 2018-01-31 16:16 | disposition home or self-care (01) ==
LOC: D.ER 14:44
PROVIDERS: Family Medicine
DX: R33.9 Retention of urine, unspecified (principal); Z98.890 Other specified postprocedural states; E11.9 Type 2 diabetes mellitus without complications; I10 Essential (primary) hypertension; N42.9 Disorder of prostate, unspecified

== ENCOUNTER → 2018-02-20 17:57 | Outpatient (CLI) | payer MEDICARE ==
[2018-01-31 14:57] VITALS: BMI 37.0
== END | disposition home or self-care (01) ==
LOC: D.LABREF 17:57
DX: D72.829 Elevated white blood cell count, unspecified (principal)

== ENCOUNTER → 2018-03-06 16:51 | Outpatient (CLI) | payer MEDICARE ==
[2018-01-31 14:57] VITALS: BMI 37.0
== END | disposition home or self-care (01) ==
LOC: D.LABREF 16:51
DX: D72.829 Elevated white blood cell count, unspecified (principal); R31.9 Hematuria, unspecified

== ENCOUNTER → 2018-03-21 18:07 | Outpatient (CLI) | payer MEDICARE ==
[2018-01-31 14:57] VITALS: BMI 37.0
== END | disposition home or self-care (01) ==
LOC: D.LABREF 18:07
DX: R31.9 Hematuria, unspecified (principal); D72.829 Elevated white blood cell count, unspecified

== ENCOUNTER → 2018-04-03 17:43 | Outpatient (CLI) | payer MEDICARE ==
[2018-01-31 14:57] VITALS: BMI 37.0
== END | disposition home or self-care (01) ==
LOC: D.LABREF 17:43
DX: R31.9 Hematuria, unspecified (principal); D72.829 Elevated white blood cell count, unspecified

== ENCOUNTER → 2018-05-15 19:05 | Outpatient (CLI) | payer MEDICARE ==
[2018-01-31 14:57] VITALS: BMI 37.0
== END | disposition home or self-care (01) ==
LOC: D.LABREF 19:05
PROVIDERS: ATTEND Urology
DX: D72.829 Elevated white blood cell count, unspecified (principal); R31.9 Hematuria, unspecified

== ENCOUNTER → 2018-07-28 18:36 | Outpatient (CLI) | payer MEDICARE ==
[2018-01-31 14:57] VITALS: BMI 37.0
== END | disposition home or self-care (01) ==
LOC: D.LABREF 18:36
PROVIDERS: ATTEND Podiatrist Foot & Ankle Surgery
DX: L03.115 Cellulitis of right lower limb (principal)

== ENCOUNTER 2018-09-05 11:00 | Day surgery (SDC) | payer MEDICARE ==
[2018-09-04 14:33] LABS: HEMATOCRIT 39.9 % (42.0-54.0); HEMOGLOBIN 13.2 g/dL (13.5-17.5); MCH 26.9 pg (26.0-34.0); MCHC 33.1 g/dL (31.0-37.0); MCV 81.3 fL (80.0-100.0); MEAN PLATELET VOLUME 8.5 fL (7.4-10.4); RBC 4.91 10x6/uL (4.20-6.10); RDW 14.3 % (11.5-14.5); WBC 9.3 10x3/uL (4.8-10.8)
[2018-09-04 14:57] LABS: CALCIUM 8.8 mg/dL (8.5-10.1); CREATININE - SERUM 1.5 mg/dL (0.6-1.3)
[~2018-09-05] VITALS: Ht 185.4 cm; Wt 148.3 kg
[~2018-09-05 11:00] MED LIST changes: +CO Q-10100 MG PO; -FUROSEMIDE20 MG PO; +FUROSEMIDE40 MG PO; +HYDROCODON-ACE1 EA10 PO; +LANTUS INSULIN SQ; +LIPOFEN150 MG PO; +MOBIC7.5 MG PO; +NOVOLOG100 UNIT/1 SC; +OMEGA-3100 MG PO
[2018-09-05 13:25] VITALS: BP 123/68; Ht 185.4 cm; Wt 148.3 kg
[2018-09-05] MEDS ORDERED: HYDROCODON-ACE1 EAC7 PO (16:03)
== END 2018-09-05 17:40 | disposition home or self-care (01) ==
LOC: D.OPS 11:00 → D.PAN 13:00 → D.OPS 13:00
PROVIDERS: Anesthesiology; ATTEND Podiatrist Foot & Ankle Surgery
DX: T84.223A Displacement of internal fixation device of bones of foot and toes, initial encounter (principal); D17.39 Benign lipomatous neoplasm of skin and subcutaneous tissue of other sites; L97.519 Non-pressure chronic ulcer of other part of right foot with unspecified severity; Z01.812 Encounter for preprocedural laboratory examination

== ENCOUNTER → 2018-11-15 17:15 | Outpatient (CLI) | payer MEDICARE ==
[2018-09-05 13:25] VITALS: BMI 43.2
[~2018-11-15 17:15] MED LIST changes: +HYDROCODON-ACE1 EAC7 PO
== END | disposition home or self-care (01) ==
LOC: D.LABREF 17:15
PROVIDERS: ATTEND Podiatrist Foot & Ankle Surgery
DX: L03.116 Cellulitis of left lower limb (principal)

== ENCOUNTER → 2019-08-02 09:16 | Outpatient (CLI) | payer MEDICARE ==
[2018-09-05 13:25] VITALS: BMI 43.2
== END | disposition home or self-care (01) ==
LOC: D.HCCARDIO 09:16
PROVIDERS: ATTEND Internal Medicine Cardiovascular Disease
DX: I25.10 Atherosclerotic heart disease of native coronary artery without angina pectoris (principal)

== ENCOUNTER → 2020-04-24 16:38 | Outpatient (CLI) | payer MEDICARE ==
[2018-09-05 13:25] VITALS: BMI 43.2
[2020-04-24 17:13] LABS: ALBUMIN 2.8 g/dL (3.4-5.0); ANION GAP 8.4 mmol/L (8-16); BILIRUBIN - TOTAL 0.25 mg/dL (0.2-1.3); CARBON DIOXIDE 34.1 mmol/L (21.0-32.0); CREATININE - SERUM 1.1 mg/dL (0.6-1.3); POTASSIUM - SERUM 4.5 mmol/L (3.5-5.1); PROTEIN - SERUM 5.7 g/dL (6.4-8.2)
== END | disposition home or self-care (01) ==
LOC: D.LABREF 16:38
PROVIDERS: ATTEND Family Medicine
DX: E11.9 Type 2 diabetes mellitus without complications (principal)